=== PATIENT | male | born 1965 | race Caucasian/White ===

== ENCOUNTER 2023-06-03 17:06 | Emergency (ER) | payer MEDICARE, BC, SELFPAY ==
[2023-06-03 17:07] VITALS: BP 183/111
[2023-06-03 17:31] LABS: % Basophils 0.5 % (0-2); % Eosinophils 2.8 % (0-6); % Immature Granulocytes 0.2 % (0-0.5); % Lymphocytes 24.8 % (20.5-51.1); % Monocytes 7.3 % (1.7-9.3); % Neutrophils 64.4 % (42.2-75.2); Absolute Eosinophils 0.1 10^3/uL (0-0.7); Absolute Lymphocytes 1.1 10^3/uL (1.2-3.4); Absolute Monocytes 0.3 10^3/uL (0.1-0.6); Absolute Neutrophils 2.8 10^3/uL (1.4-6.5); Hematocrit 38.1 % (39.0-52.0); Hemoglobin 14.1 g/dL (13.0-18.0); Mean Corpuscular Hgb 31.4 pg (27.0-31.0); Mean Corpuscular Volume 84.9 fL (80.0-94.0); Mean Platelet Volume 9.2 fL (7.4-10.4); Nucleated Red Blood Cells % 0 % (-); Platelet Count 89 10^3/uL (130-400); Red Blood Cell Count 4.49 10^6/uL (4.70-6.10); Red Cell Dist. Width 12.8 % (11.5-14.5); White Blood Cell Count 4.4 10^3/uL (4.8-10.8)
[2023-06-03 17:40] LABS: ALT (SGPT) 38 U/L (0-50); AST (SGOT) 36 U/L (17-59); Albumin 3.6 g/dl (3.5-5.0); Alkaline Phosphatase 97 U/L (38-126); Blood Urea Nitrogen 24 mg/dl (9-20); Calcium 10.9 mg/dl (8.4-10.2); Carbon Dioxide 24 mmol/L (22-30); Chloride 104 mmol/L (98-107); Glucose 194 mg/dl (70-99); Potassium 4.5 mmol/L (3.5-5.1); Sodium 136 mmol/L (135-145); Total Bilirubin 0.7 mg/dl (0.2-1.3); Total Protein 6.1 g/dl (6.3-8.2); eGFR > 60.00
[2023-06-03 17:51] LABS: Troponin I 0.021 ng/ml
[2023-06-03 18:00] VITALS: BP 191/101
[2023-06-03 19:05] VITALS: BP 174/85
[2023-06-03 19:05] LABS: COVID-19 Antigen Negative (Negative)
--- NOTE | 2023-06-03 19:11 | ED.GENMED ---
History of Present Illness
General
Chief Complaint: Blood Pressure Problem
Time Seen by Provider: 06/03/23 18:19
Travel History
Have you had any contact with someone who has COVID-19?: No
Do you have any symptoms of coronavirus? Fever > 100 degrees, chills, cough, shortness of breath, sore throat, loss of taste or smell, muscle aches, or headache?: No
History of Present Illness
History of Present Illness:
57-year-old male with history of polycystic kidney disease status post renal transplant performed in 2020 at [facility], hypertension, coronary artery disease status post CABG, and hyperparathyroidism presents to the emergency department for evaluation of
left-sided headache as well as diffuse body tingling and a 'warmth' sensation to the right upper and lower extremities. Symptoms began approxi-1 hour ago and have waxed and waned since onset. He states the symptoms are fairly common for him
whenever his blood pressure increases. He notes that since his transplant he has had labile hypertension has been quite difficult to control. He has been on numerous antihypertensives without adequate control of his blood pressures. Denies chest
pain or shortness of breath
Past History
Past History
ED Past Medical History: CAD, HTN, Renal failure and Other (Hypertension, polycystic kidney disease, peritoneal dialysis)
ED Past Surgical History: Cardiac (CABG) and Other (manohar kidney removal w/ cadaver kidney transplant October in [facility], Peritoneal dialysis port)
Social History
Tobacco: Non-smoker
Alcohol: Occasional
Drug: Marijuana (Occasional)
Personal:
Living: with family
Employment: Employed
Family History
Family History: Other (His father had coronary disease in his 40s and polycystic kidneys)
Review of Systems
Review of Systems
Allergies reviewed?: Yes
All Other Systems: ROS reviewed and negative except as documented in HPI and ROS
Phy Exam
Physical Exam
Physical Exam:
GEN: Well appearing, NAD, WDWN
HEENT: Oral mucosa moist, no scleral icterus, no nasal congestion
Cardiac: Regular rate and rhythm, no murmurs
Lung: No respiratory distress, no tachypnea, lungs clear to auscultation bilaterally
MSK: No gross deformity or injuries
Skin: Good color, no pallor or jaundice, no rashes
Neuro: AO x3; CN II-XII grossly intact. BUE strength 5/5 in all hall, sensation intact and symmetric. BLE strength 5/5 in all hall, sensation intact and symmetric
Psych: Calm, cooperative
Course
Orders/Labs/Results
Orders:
Orders
06/03/23 17:12
Electrocardiogram (*1) Urgent
Reason for Study: Hypertension, Benign
06/03/23 17:13
EKG- Treatment ONCE
06/03/23 17:21
CMP [Comprehensive Metabolic Panel] Urgent
Complete Blood Count/With Diff Urgent
Troponin I Urgent
06/03/23 18:43
COVID-19 Antigen Urgent
Source: Nasal Swab
Abnormal Lab Results
06/03/23
17:21
WBC 4.4 L 10^3/uL
(4.8-10.8)
RBC 4.49 L 10^6/uL
(4.70-6.10)
Hct 38.1 L %
(39.0-52.0)
MCH 31.4 H pg
(27.0-31.0)
Plt Count 89 L 10^3/uL
(130-400)
Absolute Lymphs (auto) 1.1 L 10^3/uL
(1.2-3.4)
BUN 24 H mg/dl
(9-20)
Glucose 194 H mg/dl
(70-99)
Calcium 10.9 H mg/dl
(8.4-10.2)
Total Protein 6.1 L g/dl
(6.3-8.2)
06/03/23 17:21
06/03/23 17:21
Vital Signs
Initial and Last Documented VS:
Initial Vital Signs
Temp Pulse Resp BP Pulse Ox
97.7 F 68 18 183/111 99
06/03/23 17:07 06/03/23 17:07 06/03/23 17:07 06/03/23 17:07 06/03/23 17:07
Last Documented Vital Signs
Temp Pulse Resp BP Pulse Ox
97.7 F 64 13 174/85 98
06/03/23 17:07 06/03/23 19:15 06/03/23 19:15 06/03/23 19:05 06/03/23 19:06
MDM/Problems Addressed
MDM/Problems Addressed:
Patient's blood pressures are significantly elevated however did downtrend slightly without medication in the emergency department. I discussed blood pressure numbers with his nephrology team on-call who recommended we initiate clonidine however
the patient says that this medication was essentially useless when used previously. Blood work is overall unremarkable, neurologic exam is benign and I have no concern for aneurysmal rupture in the brain particularly given that his headache is
since resolved. Advise close outpatient nephrology follow-up
Comment
Comment:
Initial EKG independently interpreted by me shows a sinus bradycardia rate of [address] changes concerning for ischemia, QTc of 367
*Critical Care Note
Total Time (30-74mins, 75-104mins- exclusive of procedures): Not Applicable
ED Attending Note
-
Portions of this chart may have been created with voice recognition software.� Occasional wrong word or��sound alike� substitutions may have occurred due to the inherent limitations of voice recognition software.
Discharge Plan
Departure
Patient Disposition: Home (Routine Discharge)
Date of Disposition: 06/03/23
Time of Disposition: 19:11
Patient with high blood pressure during this ER visit?: No
Discharge Problem:
Hypertension, uncontrolled
Instructions: High Blood Pressure (DC)
Prescriptions:
No Action
metoprolol succinate 50 MG tablet extended release 24 hr
50 mg PO DAILY
prednisone 10 MG tablet
5 mg PO DAILY
ergocalciferol (vitamin D2) 50,000 UNITS capsule
50,000 units PO TU
rosuvastatin 10 MG tablet
10 mg PO HS
multivitamin with folic acid [Tab-A-Viviana] 1 TABLET tablet
1 tab PO DAILY
potassium chloride [K-Tab] 20 MEQ tablet extended release
20 meq PO DAILY
magnesium oxide 400 MG tablet
400 mg PO DAILY
B-Qlhl-Qppvfke 250 MG tablet
250 mg PO DAILY
mycophenolate sodium 180 MG tablet,delayed release (DR/EC)
360 mg PO DAILY
Rx Instructions:
180 mg po hs
fluticasone furoate-vilanterol [Breo Ellipta] 1 EACH blister with device
1 ea IH R DAILY PRN (Reason: sob)
aspirin 81 mg Tablet,Delayed Release (Dr/Ec)
81 mg PO DAILY
terazosin 2 mg capsule
2 mg PO BID
furosemide 20 mg tablet
20 mg PO DAILY PRN (Reason: swelling)
Envarsus XR 1 mg tablet extended release 24 hr
1 mg PO DAILY
Envarsus XR 4 mg tablet extended release 24 hr
4 mg PO DAILY
clopidogrel 75 mg Tablet
75 mg PO DAILY Qty: 21 0RF
losartan 25 mg Tablet
25 mg PO DAILY
mycophenolate sodium 180 mg Tablet,Delayed Release (Dr/Ec)
180 mg PO HS
cinacalcet [Sensipar] 30 mg Tablet
30 mg PO DAILY
Referrals:
Skinny Moreau MD [Family Provider] -
Sarah Mcmahan MD [Active] - Call in 1-3 days for appt
Interventions
Interventions:
*Risk Screen - Suicide Last Done: 06/03/23 19:29
*General Assessment Last Done: 06/03/23 18:00
*Neglect/Abuse Screening Last Done: 06/03/23 18:00
ED- Fall Risk Assessment Last Done: 06/03/23 19:29
*ED COVID-19 Vaccine History Last Done: 06/03/23 17:59
*Nursing Disposition Last Done: 06/03/23 19:30
ED- Cardiac Assessment Last Done: 06/03/23 18:01
ED- Neurological Assessment Last Done: 06/03/23 18:47
ED- Pulmonary Assessment Last Done: 06/03/23 18:01
Discharge Date and Time
Discharge Date/Time: 06/03/23 19:31
== END 2023-06-03 19:31 | disposition home or self-care (01) ==
LOC: EMR 17:06
PROVIDERS: Physician Assistant; EMERGENCY PHYSICIAN Emergency Medicine; FAMILY PHYSICIAN Family Medicine
DX: I10 Essential (primary) hypertension (principal); I25.10 Atherosclerotic heart disease of native coronary artery without angina pectoris
CPT/HCPCS: 99284; 80053; 84484; 85025; 87811; 93005

== ENCOUNTER 2023-06-09 08:36 | Inpatient (IN) | payer MEDICARE, BC, SELFPAY ==
[2023-06-07] VITALS (14 sets, daily range): BP systolic 132–208; BP diastolic 68–119; BMI 29.8; BMI 28.0
[2023-06-07 10:46] LABS: Glucose - Point of Care 144 mg/dl (70-99)
[2023-06-07] MEDS: BENADRYL 25 MG IV (11:17)
[2023-06-07] MEDS: REGLAN 10 MG IV (11:17)
[2023-06-07] MEDS: LOPRESSOR 5 MG IV (11:24)
--- NOTE | 2023-06-07 11:29 | CON.NEURO4 ---
Consultation - Neurology 4
-
CONSULTING PHYSICIAN: Srinath
REFERRING PHYSICIAN: Omid
DICTATED BY: Srinath
DATE/TIME OF REQUEST: 06/07/23 1035
DATE/TIME OF CONSULTATION: 06/07/23 1040
Reason for Consultation: stroke alert
History of Present Illness:
58 year-old with a complex PMH of polycystic kidney dz s/p renal transplant in 2020, R BRAO, CAD s/p CABG, htn, and hyperparathyroidism with recent admission to on 06/04/23 with uncontrolled htn, SMITH, diffuse body tingling, a feeling of his 'right
side being hot,' dysphagia and slight left sided weakness as well as generalized ataxia. He was seen by Dr. Blood from our service on 06/04. MRI brain at that time was negative for stroke. VSE completed during that admission as well as echo.
Symptoms were attributed to uncontrolled hypertension. PT/OT cleared him for return home and he was discharged 06/05.
Today he returns as a stroke alert for LLE weakness. He states that his sensation of warmth on his R side has not subsided at all since his last admission, so this is not new. (Subjective left sided weakness was also noted on last admission.) He
has a headache and experienced n/v while in CT. He is also complains of abnormal eye movements c/w oscillopsia. Given Benadryl, Reglan and Lopressor in the ED.
He has seen JAYLYN Alford in our office; this information was taken from her previous outpatient note:
06/18/22:
'Presents for evaluation for headaches. He was recently seen at [facility] in December 2021 with a right-sided branch retinal artery occlusion. He had some work-up done and then left AGAINST MEDICAL ADVICE. He is currently taking dual
antiplatelet therapy as well as Crestor. He has some residual right sided right upper and left upper quadrant clouding of his vision. His main concern today is ongoing headaches. Regarding his previous work-up he had an MRI of the brain done without
contrast on December 10, 2021 which showed a slight increase in prominence of a Bianca cisterna magna and mild to moderate diffuse volume loss but no evidence of any stroke. MRA of the picayune of Segal without contrast showed a short segment of mild to
moderate stenosis in the distal left vertebral artery. Otherwise there was no evidence of any high-grade stenosis or occlusion. He does have a family history of cerebral aneurysm and his brother of an intracranial hemorrhage from ruptured
aneurysm. He states that he has been extensively screened for aneurysms in the past. He also had a carotid ultrasound while admitted. This showed less than 50% stenosis bilaterally. His LDL at that time was 87.�������He says that prior to his
retinal artery occlusion and coinciding with going off of gabapentin which she was taking for chronic pain that resulted with taking medication for his kidney transplant he developed headaches have been persistent. He denies any correlation of new
medication with the start of his headaches. They at times are behind his left eye and are associated with jaw pain and neck pain. They seem to occur the most in the middle of the night. This prompted him to start checking his blood pressure at night
and at times it was as high as 210/120. They are worse when he lays down flat and better when he sits up. He denies any associated photophobia, phonophobia, nausea or vomiting. He has no visual aura with that he has these headaches almost on a daily
basis. He was recently put on Klonopin by the transplant team/nephrology at the [facility] to try to help his blood pressure. With improvement in his blood pressure his headaches have improved significantly. He notices now so more that neck
pain seems to trigger his remaining headaches and he has some lower facial pain with them. He denies any snoring and feels that he sleeps well. He has been offered a sleep study in the past and did not want to have this done. He will also be seeing
a dentist soon for evaluation for TMJ.�������
06/18/2022:������Patient feeling much better since his last visit. He reports his blood pressure has been better controlled and therefore headaches have resolved. He has not needed to take any medication for headaches. He denies any symptoms of
stroke. He continues on aspirin and Crestor. He has no complaints today.'
From recent admission:
'Past Medical History: � CAD status post CABG, Renal failure s/p transplant, polycystic kidney disease, hyperparathyroidism, right BRAO, bianca cisterna magna anatomic variant, BPH
Surgical History:� Bilateral kidney removal with cadaveric kidney transplant October 2020, peritoneal dialysis port, three-vessel CABG approximately 2018
Family History:� Father had polycystic kidney disease and and CAD occurred in 40's, 5 siblings with PKD, brother- from cerebral aneurysm rupture
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
use with an edible'
Allergies:� No known allergies.
Allergies
No Known Allergies Allergy (Verified 06/04/23 03:43)
Home Medications
Medication Instructions Recorded
ergocalciferol (vitamin D2) 1,250 50,000 units PO MONTHLY 04/09/21
mcg (50,000 unit) capsule
multivitamin with folic acid 400 1 tab PO DAILY 04/09/21
mcg tablet (Tab-A-Viviana)
potassium chloride 20 mEq 20 meq PO DAILY 08/05/21
tablet,extended release (K-Tab)
mycophenolate sodium 180 mg 360 mg PO BID 08/07/21
tablet,delayed release
aspirin 81 mg tablet,delayed 81 mg PO DAILY 12/10/21
release
tacrolimus 1 mg tablet,extended 3 mg PO DAILY 12/10/21
release 24 hr (Envarsus XR)
terazosin 2 mg capsule 2 mg PO BID 12/10/21
cinacalcet 60 mg tablet 90 mg PO QPM 06/04/23
magnesium oxide 400 mg (241.3 mg 400 mg PO BID 06/04/23
magnesium) tablet
metoprolol tartrate 50 mg tablet 50 mg PO DAILY 06/04/23
metoprolol tartrate 50 mg tablet 75 mg PO DAILY@199906/04/23
(Lopressor)
prednisone 5 mg tablet 5 mg PO Q48H@0800 06/04/23
sodium di- and 1 tab PO DAILY 06/04/23
monophosphate-potassium phos
monobasic 250 mg tablet (Phospha
Neutral)
spironolactone 25 mg tablet 25 mg PO DAILY@199906/04/23
Review of Symptoms:
Patient denies any fever, headache, chest pain, shortness of breath, symptoms. He complains of vertigo and nausea and then vomited in CT.
�Per the HPI.�All systems are reviewed negative except above.
Vital Signs
Temp Pulse Resp BP Pulse Ox
97.6 F 68 12 194/114 99
06/07/23 11:10 06/07/23 11:10 06/07/23 11:10 06/07/23 11:10 06/07/23 11:10
Physical Exam:
The patient is afebrile, heart sounds S1 and S2 are regular, and chest is clear to auscultation bilaterally.
NIH Stroke Scale:
I performed the NIH stroke scale on the patient on 06/07/23 at 1040. The patient scored 0 points on the NIH stroke scale assessment.
Neurologic Examination:
The patient is awake, alert and oriented x 3. He is able to follow commands and answer questions appropriately. There is no aphasia or dysarthria. On cranial nerve assessment, pupils are 3 mm bilateral, round and reactive to light and
accommodation. Visual hall are full. Extraocular movements are intact. +bilateral nystagmus gaze evoked to L. Facial sensations are intact and bilaterally symmetrical, there is no facial asymmetry. Hearing is intact bilaterally to normal
conversation volume. Tongue palate and uvula are midline. Sternocleidomastoid strengths are full bilaterally. Motor strengths are 5/5 bilateral upper and lower extremities on medical research Native scale. There is no drift or involuntary movement
noted. Deep tendon reflexes are 2+ bilateral upper and lower extremities and Babinski is absent bilaterally. Sensations of touch, temperature are intact and bilaterally symmetrical. There was no extinction noted on double simultaneous stimulation.
Coordination is intact by finger to nose bilaterally.
Neuro Imaging:
HCT done today during stroke alert:
'No acute intracranial abnormality noted and no significant change. Specifically, no acute intracranial hemorrhage or evidence to suggest acute large vascular territory transcortical infarct at this time.
Stable prominent retrocerebellar and right lateral cerebellar CSF space, with possible considerations including arachnoid cyst and/or bianca cisterna magna, normal developmental variant.
Aspects score: 10.'
MRI brain 06/04/23:
'Mild diffuse parenchymal atrophy, stable from prior. No abnormal parenchymal signal intensity. No mass effect, midline shift, or extra axial collection. No abnormal signal intensity on diffusion-weighted images. Stable prominent retrocerebellar and
right lateral cerebellar CSF spaces, arachnoid cysts and/or bianca cisterna magna anatomic variant.
The vascular flow voids at the skull base are unremarkable, as far as visualized.
Large mucous retention cysts in the bilateral maxillary sinuses. The mastoid air cells are clear.
IMPRESSION:
No acute intracranial abnormality.'
Impression:
HALLEY WOOD is a 58 year old M who has presented to the hospital with LLE weakness (not present on exam), n/v, oscillopsia and headache.
Differentials for the patient's presentation include:
1. BPPV
2. complicated headache with hypertensive urgency
3. stroke seems less likely given recent admission with MRI brain without stroke, similar symptoms with that admission
Patient has the following risk factors for their symptoms: uncontrolled htn, CAD, renal transplant, right BRAO
IV Tenecteplase/IAT candidacy: not a candidate given NIHSS of 0
Recommendations:
-reviewed today's HCT, recent MRI brain--no further imaging needed at this time.
-Valium for severe vertigo if it persists with n/v. Tylenol for abortive therapy for headache. Has already had Benadryl and Reglan.
-BP control--needs gradual reduction in BP with hypertensive urgency. Given Lopressor in ED. May need to see nephrology or cardiology for better control.
-continue ASA 81mg daily, home rosuvastatin
-outpatient sleep study recommended on last admission to r/o PAOLA contributing to nocturnal htn
-PT/OT evaluations
Discussed patient care with: patient, Dr. Anne
Critical care time 80 mins
--- NOTE | 2023-06-07 12:01 | ED.GENMED ---
History of Present Illness
General
Chief Complaint: Weakness
Source: patient and ambulance crew
Exam Limitations: none
Time Seen by Provider: 06/07/23 10:50
Nursing documentation reviewed up to this point in time: agreed with
Travel History
Have you had any contact with someone who has COVID-19?: No
Do you have any symptoms of coronavirus? Fever > 100 degrees, chills, cough, shortness of breath, sore throat, loss of taste or smell, muscle aches, or headache?: No
History of Present Illness
History of Present Illness:
Patient is a 58-year-old man with a past medical history of renal transplant who was recently admitted to the hospital for a stroke workup, who was called as a possible 'pre-hospital stroke alert' after he experienced reportedly weakness in his left
leg, as reported by paramedics. They report his symptoms started at around 9:30 AM today. However, upon arrival, patient gives a different history. He reports severe dizziness and vomiting. He reports a left-sided headache and feels pressure in
his left nasal sinus area. Patient reports he has never had this before. He is actively vomiting. He reports the symptoms started fairly suddenly this morning and have been constant. He reports he is having difficulty seeing because his eyes
keep moving. Due to prehospital stroke alert, Dr. Yo at the bedside doing a neurological evaluation. Patient denies specific weakness. He reports that he feels a different temperature sensation on the left side of his body versus the right
side of his body.
Past History
Past History
ED Past Medical History: CAD, HTN, Renal failure and Other (Hypertension, polycystic kidney disease, peritoneal dialysis)
ED Past Surgical History: Cardiac (CABG) and Other (manohar kidney removal w/ cadaver kidney transplant October in [facility], Peritoneal dialysis port)
Social History
Tobacco: Non-smoker
Alcohol: Occasional
Drug: Marijuana (Occasional)
Personal:
Living: with family
Employment: Employed
Family History
Family History: Other (His father had coronary disease in his 40s and polycystic kidneys)
Review of Systems
Review of Systems
Allergies reviewed?: Yes
All Other Systems: ROS reviewed and negative except as documented in HPI and ROS
Constitutional: Reports no symptoms
EENT: Reports no symptoms
Respiratory: Reports no symptoms
Cardiac: Reports no symptoms
ABD/GI: Reports nausea and vomiting
: Reports no symptoms
Musculoskeletal: Reports no symptoms
Skin: Reports no symptoms
Neurological: Reports dizzy
Endocrine: Reports no symptoms
Hematologic/Lymphatic: Reports no symptoms
Psychiatric: Reports no symptoms
Phy Exam
Physical Exam
Physical Exam:
Physical Exam
General: Patient is actively vomiting. Appears uncomfortable
Neck: supple. no meningeal signs. normal psoterior pharynx
Heart: s1/s2 regular rate and rhythm, no murmur. equal radial pulses.
Lungs: no acute respiratory distress. clear bilaterally
Abdomen: normal bowel sounds. not tender. no CVAT
Neuro: alert and oriented. no focal neurological deficits. 5 out of 5 strength in all extremities. No drift. Horizontal nystagmus
Skin: no rash
Psychiatric: well kept. interactive and cooperative
Extremities: no edema. no calf tenderness. negative homans. good distal pulses
Course
Orders/Labs/Results
Orders:
Orders
06/07/23 10:47
CT Head W/o Iv Contrast Stat
Comment:
Reason For Exam: stroke alert
06/07/23 11:13
Diphenhydramine [Benadryl] 25 mg IV NOW STA
Metoclopramide [Reglan] 10 mg IV NOW STA
06/07/23 11:21
Metoprolol [Lopressor] 5 mg IV NOW STA
06/07/23 12:11
Electrocardiogram (*1) Urgent
Reason for Study: Vertigo / Dizzy
EKG- Treatment ONCE
06/07/23 12:24
Complete Blood Count/With Diff Urgent
Comprehensive Metabolic Panel Urgent
06/07/23 12:43
HYDROmorphone [Dilaudid] 0.5 mg IV NOW STA
Labetalol HCl [Trandate] 20 mg IV NOW STA
06/07/23 13:59
Admit/Transfer Patient As Directed
Co-Sign Provider:
Level of Care: Observation services
Assign to:: Telemetry
Physician / Group: Seven
Diagnosis: Hypertensive emergency
Reason for Telemetry: Other
Other Reason for Telemetry: Hypertensive emergency
Date to Stop Telemetry: 06/09/23
Time to Stop Telemetry: 11:00
Reason for Hospitalization: Hypertensive emergency
Expected length of stay greater than two midnights?: Yes
ELOS- Estimated Length of Stay in days: 3
I certify the patient meets the requirements for IP care: Yes
Abnormal Lab Results
06/07/23 06/07/23
10:44 12:24
Plt Count 71 L D 10^3/uL
(130-400)
Lymphocytes % 18.5 L %
(20.5-51.1)
BUN 27 H mg/dl
(9-20)
Glucose 158 H mg/dl
(70-99)
Calcium 10.9 H mg/dl
(8.4-10.2)
POC Glucose 144 H mg/dl
(70-99)
06/07/23 12:24
06/07/23 12:24
Vital Signs
Initial and Last Documented VS:
Initial Vital Signs
Temp Pulse Resp BP Pulse Ox
97.6 F 68 12 194/114 99
06/07/23 11:10 06/07/23 11:10 06/07/23 11:10 06/07/23 11:10 06/07/23 11:10
Last Documented Vital Signs
Temp Pulse Resp BP Pulse Ox
97.6 F 80 19 182/105 96
06/07/23 11:10 06/07/23 14:15 06/07/23 14:15 06/07/23 14:00 06/07/23 12:31
MDM/Problems Addressed
Differential Diagnosis Includes:
Vertigo, CVA, intracranial bleed
MDM/Problems Addressed:
Patient presents with acute dizziness, nausea and vomiting
Chronic conditions affecting care: HTN
Acute Exacerbation and/or Progression of Chronic Illness:
Patient is acutely hypertensive, which may be contributing to his symptoms
Acute Exacerbation and/or Progression of Chronic Illness: HTN
*Radiology
Radiology exam reviewed: radiology read reviewed
*Pulse Oximetry
Patient hypoxic: no
*EKG
Interpreted by ED Provider?: Yes
Interpretation: abnormal
Comparison EKG: no changes
Rate: normal
Rhythm: sinus
[place]: normal axis
Interval: normal interval
QRS Pattern: normal QRS
Ischemia: non-specific ST changes
*Emergency Room Orderly Interpretation
Rate: normal
Interpretation: normal
Rhythm: sinus
*Critical Care Note
Total Time (30-74mins, 75-104mins- exclusive of procedures): 35 minutes
comment:
35 minutes of critical care given to patient including frequent reassessments of his blood pressure both before and after being given IV Lopressor and labetalol, as well as reassessing his headache, neurological exam, speaking to neurology and the
hospitalist
Data Reviewed
Review of Other/Old Records Reveals: Discharge Summary (Discharge summary reviewed from hospitalist from 06/05/23 when patient was admitted for 'right body warmth' and hypertension)
Source: patient and previous hospital records
Patient Management
Discussion with other providers: Hospitalist
Escalation/DeEscalation of care consider admission/obs:
Given patient's [id number] blood pressure and ongoing vertigo and severe headache, decision made to admit the patient for blood pressure management.
Update Note
Update Note:
12:30 PM patient given IV Lopressor with very transient improvement of blood pressure but now blood pressure still elevated in the 220s systolic. I am concerned about hypertensive emergency given his severe headache, dizziness and [id number]
blood pressure. I feel it is safe for the patient to be admitted for blood pressure management.
ED Attending Note
-
Portions of this chart may have been created with voice recognition software.� Occasional wrong word or��sound alike� substitutions may have occurred due to the inherent limitations of voice recognition software.
Discharge Plan
Departure
Patient Disposition: Admit
Date of Disposition: 06/07/23
Time of Disposition: 12:42
Admit to: Telemetry
Presentation/result/management discussed w/ accepting MD/DO: Hospitalist
Patient with high blood pressure during this ER visit?: Yes
Condition: Fair
Covid-19: Not Applicable
Discharge Problem:
Hypertensive emergency
Interventions
Interventions:
*Risk Screen - Suicide Last Done: 06/07/23 11:12
*General Assessment Last Done: 06/07/23 11:12
*Neglect/Abuse Screening Last Done: 06/07/23 11:12
ED- Fall Risk Assessment Last Done: 06/07/23 12:34
*ED COVID-19 Vaccine History Last Done: 06/07/23 11:12
ED- Cardiac Assessment Last Done: 06/07/23 12:49
ED- Neurological Assessment Last Done: 06/07/23 12:34
ED- Pulmonary Assessment Last Done: 06/07/23 12:34
[2023-06-07 12:42] LABS: % Basophils 0.6 % (0-2); % Eosinophils 1.5 % (0-6); % Immature Granulocytes 0.3 % (0-0.5); % Lymphocytes 18.5 % (20.5-51.1); % Monocytes 7.7 % (1.7-9.3); % Neutrophils 71.4 % (42.2-75.2); Absolute Eosinophils 0.1 10^3/uL (0-0.7); Absolute Lymphocytes 1.2 10^3/uL (1.2-3.4); Absolute Monocytes 0.5 10^3/uL (0.1-0.6); Absolute Neutrophils 4.7 10^3/uL (1.4-6.5); Hematocrit 40.7 % (39.0-52.0); Hemoglobin 14.6 g/dL (13.0-18.0); Mean Corp Hgb Conc. 35.9 g/dL (33.0-37.0); Mean Corpuscular Hgb 30.6 pg (27.0-31.0); Mean Corpuscular Volume 85.3 fL (80.0-94.0); Mean Platelet Volume 9.5 fL (7.4-10.4); Nucleated Red Blood Cells % 0 % (-); Platelet Count 71 10^3/uL (130-400); Red Blood Cell Count 4.77 10^6/uL (4.70-6.10); Red Cell Dist. Width 12.6 % (11.5-14.5); White Blood Cell Count 6.6 10^3/uL (4.8-10.8)
[2023-06-07] MEDS: DILAUDID 0.5 MG IV (12:50)
[2023-06-07] MEDS: TRANDATE 20 MG IV (12:50)
[2023-06-07 12:51] LABS: ALT (SGPT) 37 U/L (0-50); AST (SGOT) 32 U/L (17-59); Albumin 4.3 g/dl (3.5-5.0); Alkaline Phosphatase 98 U/L (38-126); Blood Urea Nitrogen 27 mg/dl (9-20); Calcium 10.9 mg/dl (8.4-10.2); Carbon Dioxide 28 mmol/L (22-30); Chloride 105 mmol/L (98-107); Estimated Creatinine Clearance 73 ml/min; Glucose 158 mg/dl (70-99); Sodium 135 mmol/L (135-145); Total Bilirubin 0.8 mg/dl (0.2-1.3); Total Protein 6.9 g/dl (6.3-8.2); eGFR > 60.00
[2023-06-07 13:23] LABS: Potassium 4.6 mmol/L (3.5-5.1)
--- NOTE | 2023-06-07 14:02 | HPS.HSE ---
Family Physician
-
Family Physician: INTERVIEWE UNKNOWN - PT NOT
Medical History
Allergies / Home Medications
Allergies reflects when Allergies were last updated in [facility].
Home Medications with original date entered in [facility]
Physical Exam
Vital Signs
Vital Signs
Temp Pulse Resp BP Pulse Ox
97.6 F 72 10 188/101 96
06/07/23 11:10 06/07/23 13:45 06/07/23 13:45 06/07/23 13:30 06/07/23 12:31
Laboratory Results
-
06/07/23 12:24
06/07/23 12:24
Laboratory Results
Total Bilirubin 0.8 mg/dl (0.2-1.3) 06/07/23 12:24
AST 32 U/L (17-59) 06/07/23 12:24
ALT 37 U/L (0-50) 06/07/23 12:24
Alkaline Phosphatase 98 U/L (38-126) 06/07/23 12:24
CT brain:
No acute intracranial abnormality noted and no significant change. Specifically, no acute intracranial hemorrhage or evidence to suggest acute large vascular territory transcortical infarct at this time.
Impression/Plan
-
IMPRESSION:
PLAN:
--- NOTE | 2023-06-07 14:49 | HPS.HSE ---
Addendum entered and electronically signed by Gerald Amezcua MD 06/07/23 18:45:
Patient been having some numbness of the right side with some clumsiness as he described it, does not feel weak, even her CT LE was negative seen by neurology and an MRI brain on Thursday, June 05, 2023 was negative therefore ordered an MRI to see
if there is any new event. This is very likely secondary to the hypertension while other causes may need to be considered. No neck pain, if the MRI of head is negative then MRI of cervical spine may need to be considered.
Original Note:
Family Physician
-
Family Physician: INTERVIEWE UNKNOWN - PT NOT
Chief Complaint
-
Headache, nausea and dizziness and elevated blood pressure
History of Present Illness
58-year-old male with known history of polycystic renal disease and status post renal transplant, poorly controlled hypertension mostly in the evening hours, and he was discharged from the hospital on Thursday for the same issue who made him come back
today. He woke up this morning feeling dizzy, lightheaded with generalized body ache and malaise and fatigue with nausea but no vomiting.
Checked his blood pressure was extremely elevated therefore decided to come back to the hospital. Denies any weakness or numbness in extremities admit left-sided facial pain and pressure thinking he may have sinusitis.
No urinary or GI symptom,
Workup in the ER showed blood pressure extremely elevated received a dose of IV labetalol blood pressure improved right now is 180s from 220s, close his headaches better and still little dizzy but much better than before, stroke alert was called as
initial report from the EMS was he has weakness in the right side but patient denies any weakness or numbness, seen by neurology I think this is mostly vertigo likely blood pressure related.
Had an MRI of brain on Thursday basically was negative.
He is awake, alert and oriented x 3 hold appropriate conversations.
Medical History
Past Medical History
Past Medical History: Reports Other
Additional Past Medical History:
Past medical history Reviewed:
History of persistent renal disease) end-stage renal disease on dialysis but now status post renal transplant
Coronary artery disease status post CABG and stents
Deviated septum
Dyslipidemia
Poorly controlled hypertension
History of shingle
History of otitis C
Vitamin D deficiency
GERD
Albuminuria
Erosive gastropathy without bleeding
History of colitis
Syncope
Abdominal cellulitis
Posttransplant CMV infection
Posttransplant BK viremia
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
Right third metatarsal fracture
Surgical history:
Cardiac cath and stenting and CABG
[place] tooth extraction
Deviated septum repair
Arthroscopic peritoneal dialysis catheter placement and removal
Left upper extremity AV fistula creation
Bilateral nephrectomy
Colonic polypectomy
Colonoscopy
Hernia repair
Social history: Lives independently with the family no smoking alcohol or drug use.
Family history: Positive for polycystic renal disease, hypertension stroke and coronary artery disease
Past Surgical History: Reports Other
Social History
Tobacco: Other
Family History
Family History: Other
Allergies / Home Medications
Allergies reflects when Allergies were last updated in [facility].
Home Medications with original date entered in [facility]
Allergy/Medication List:
Allergies
Allergy/AdvReac Type Severity Reaction Status Date / Time
No Known Allergies Allergy Verified 06/04/23 03:43
Home Medications
ergocalciferol (vitamin D2) 1,250 mcg (50,000 unit) capsule 50,000 units PO MONTHLY 04/09/21
multivitamin with folic acid 400 mcg tablet (Tab-A-Viviana) 1 tab PO DAILY 04/09/21
potassium chloride 20 mEq tablet,extended release (K-Tab) 20 meq PO DAILY 08/05/21
mycophenolate sodium 180 mg tablet,delayed release 360 mg PO BID 08/07/21
aspirin 81 mg tablet,delayed release 81 mg PO DAILY 12/10/21
tacrolimus 1 mg tablet,extended release 24 hr (Envarsus XR) 3 mg PO DAILY 12/10/21
terazosin 2 mg capsule 2 mg PO BID 12/10/21
cinacalcet 60 mg tablet 90 mg PO QPM 06/04/23
magnesium oxide 400 mg (241.3 mg magnesium) tablet 400 mg PO BID 06/04/23
metoprolol tartrate 50 mg tablet 50 mg PO DAILY 06/04/23
metoprolol tartrate 50 mg tablet (Lopressor) 75 mg PO HS 06/04/23
prednisone 5 mg tablet 5 mg PO Q48H@0800 06/04/23
sodium di- and monophosphate-potassium phos monobasic 250 mg tablet (Phospha Neutral) 1 tab PO DAILY 06/04/23
spironolactone 25 mg tablet 25 mg PO DAILY@199906/04/23
Review of Systems
-
A 12 point ROS was completed and negative except as noted: Yes
Physical Exam
Vital Signs
Vital Signs
Temp Pulse Resp BP Pulse Ox
97.6 F 80 19 182/105 96
06/07/23 11:10 06/07/23 14:15 06/07/23 14:15 06/07/23 14:00 06/07/23 12:31
Physical Exam
Respiratory: Other
Laboratory Results
-
06/07/23 12:24
06/07/23 12:24
Laboratory Results
Total Bilirubin 0.8 mg/dl (0.2-1.3) 06/07/23 12:24
AST 32 U/L (17-59) 06/07/23 12:24
ALT 37 U/L (0-50) 06/07/23 12:24
Alkaline Phosphatase 98 U/L (38-126) 06/07/23 12:24
CT brain:
No acute intracranial abnormality noted and no significant change. Specifically, no acute intracranial hemorrhage or evidence to suggest acute large vascular territory transcortical infarct at this time.
EKG showed sinus bradycardia rate around 38, PA 132, QTc 371, otherwise nonspecific T wave abnormalities.
Data Reviewed
-
CT Scan: Image Personally Visualized and interpreted and Discussed with Patient
Lab Data: Labs Reviewed by me and Discussed with Patient
Old Records: Reviewed
Impression/Plan
-
IMPRESSION:
58-year-old male with history of renal transplant secondary to polycystic renal disease and poorly controlled blood pressure, was discharged from the hospital on Monday, June 05, 2023 while he was here for the same issue which is a headache and
elevated blood pressure.
No medication adjustment made then. Presented again with the same episode with dizziness, doubt a stroke.
Hypertensive emergency, improving
Labile hypertension
Headache
Dizziness, likely secondary to hypertensive emergency
Nausea
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
Coronary artery disease status post stenting and CABG
Dyslipidemia
Chronic immunosuppressed
PLAN:
Pressures 180s/100 now which is acceptable reduction gradually from his initial presentation was around 220/120s.
Headache and dizziness resolved
Monitor vital sign
Continue Lopressor 50 in the morning and 70 5 in the evening as he admitted his blood pressure usually elevated in the night until earlier in the morning and usually well-controlled in the daytime, and taking a long-acting medication his blood
pressure is helen be dropping below the normal making symptomatic therefore not sure he would benefit from long-acting blood pressure medication like Aldactone or any other long-acting medication, Lopressor is acceptable, I will start him on
hydralazine 25, 3 times daily scheduled, take with checking blood pressure before taking the medication, do not administer if systolic blood pressure less than 110 as explained to the patient to avoid further fluctuation or dropping of the blood
pressure.
Continue medication for now
No need for the MRI as he had 1 done in Thursday basically was negative for stroke and this is unlikely stroke
Seen by neurology
Continue aspirin and statin
All discussed with the patient in detail expressed understanding
CODE STATUS full code
DVT prophylaxis Lovenox
[2023-06-07] MEDS: SENSIPAR 90 MG PO (18:16)
[2023-06-07] MEDS: LOVENOX 40 MG SC (18:17)
[2023-06-07] MEDS: APRESOLINE 25 MG PO ×2 (18:17→22:29)
[2023-06-07] MEDS: HYTRIN 2 MG PO (20:04)
[2023-06-07] MEDS: ALDACTONE 25 MG PO (20:04)
[2023-06-07] MEDS: MAGNESIUM OXIDE 500 MG PO (20:04)
[2023-06-07] MEDS: MYFORTIC DELAYED REL. 360 MG PO (20:05)
[2023-06-07] MEDS: ZOFRAN 4 MG IV (20:36)
[2023-06-07] MEDS: LOPRESSOR 75 MG PO (22:29)
[2023-06-08] VITALS (7 sets, daily range): BP systolic 108–147; BP diastolic 72–92; PULSE 77; BMI 27.2
--- NOTE | 2023-06-08 00:23 | PTCARENOTE ---
At approx 2030, pt stood at bedside with nursing assistance to void in urinal and c/o dizziness and nausea. Pt sat on side of bed and vomited. Refer to MAR for Zofran administration. Zofran was effective, pt offers no complaints of nausea at this
time
[2023-06-08 06:24] LABS: Blood Urea Nitrogen 29 mg/dl (9-20); Calcium 10.7 mg/dl (8.4-10.2); Carbon Dioxide 26 mmol/L (22-30); Chloride 102 mmol/L (98-107); Estimated Creatinine Clearance 68 ml/min; Glucose 129 mg/dl (70-99); Magnesium 1.7 mg/dl (1.6-2.3); Potassium 4.1 mmol/L (3.5-5.1); Sodium 138 mmol/L (135-145); eGFR > 60.00
[2023-06-08] MEDS: TYLENOL 650 MG PO (06:37)
[2023-06-08 07:14] LABS: Vitamin B12 334 pg/ml (239-931)
[2023-06-08] MEDS: HYTRIN 2 MG PO ×2 (07:34→20:33)
[2023-06-08] MEDS: MYFORTIC DELAYED REL. 360 MG PO ×2 (07:34→20:33)
[2023-06-08] MEDS: ENVARSUS XR 3 MG PO (07:34)
[2023-06-08] MEDS: NEUTRA-PHOS POWDER PACKET 250 MG PO (07:34)
[2023-06-08] MEDS: MAGNESIUM OXIDE 500 MG PO ×2 (07:34→20:32)
[2023-06-08] MEDS: DELTASONE 5 MG PO (07:34)
[2023-06-08] MEDS: ASPIR LOW (ENTERIC COATED) 81 MG PO (07:34)
[2023-06-08] MEDS: KCL 20 MEQ PO (07:34)
[2023-06-08] MEDS: APRESOLINE 25 MG PO ×2 (07:35→17:11)
[2023-06-08] MEDS: LOPRESSOR 50 MG PO (07:35)
--- NOTE | 2023-06-08 08:16 | W.PN.HOSP.TC ---
Today's Communication/Plan
-
Repeat MRI of the brain. Aspirin, considering statins. PT OT and rehab eval.
Assessment / Plan
Assessment / Plan
Physical exam:
General: Well Developed, Well Nourished and No Apparent Distress
HEENT: Normocephalic, Atraumatic and Moist Mucous Membranes
Respiratory: Clear to Auscultation; Negative Wheezes, Rales or Rhonchi
Cardiac: Regular Rhythm and S1/S2
GI: Soft, Nontender and Nondistended
Musculoskeletal: No Clubbing, No Cyanosis and No Edema
Neuro: Awake, Alert and Oriented, left face and left side body decree sensation, left eye ptosis, left nystagmus, left aidfci-jr-gdda dysmetria, left upper extremity and bilateral lower extremity ataxia, strength 4 out of 5 all 4 extremities.
Psych: Calm
MRI of the brain:
1. � 8.9 mm ACUTE ISCHEMIC INFARCT in the LEFT POSTEROLATERAL MEDULLA containing cytotoxic edema.
2. � Moderate to severe diffuse cerebellar volume loss.
3. � Moderate diffuse cerebral volume loss.
4. � Mild paranasal sinus mucosal disease.
A/P:
IMPRESSION:
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
Hypertensive urgency--> this is not the cause of his symptoms, rather consequence from stroke.
Hyperglycemia
Hypercalcemia
Dyslipidemia
Thrombocytopenia, PLt 71
Conditions prior to presentation:
CAD status post CABG in the past
Polycystic kidney disease s/p renal transplant in 2020
History of R BRAO
Hypertension
Hyperparathyroidism
Plan:
Reviewed repeat MRI of the brain today on 06/08
Aspirin 81 mg daily
Neurology would like to hold off on dual antiplatelet therapy given baseline thrombocytopenia.
Patient had TTE recently.
Check lipid profile and likely to start statins
Plan for MRI of the head and neck
NIH stroke eval
PT OT eval
Vitamin B12 334, TSH 3.75, folate 8.4
Update hemoglobin A1c
Continue metoprolol tartrate 50 mg in the morning 75 mg in the evening, hydralazine 25 mg 3 times daily, spironolactone 25 mg p.o. daily--> allow permissive hypertension.
Discussed with neurology and reconsulted neurology today on 06/08.
Nephrology consult
Tailor Apprentice/rehab consult
On mycophenolate and tacrolimus, and prednisone.
On terazosin
On Sensipar
Potassium magnesium supplements.
DVT prophylaxis-->Lovenox 40 mg subcutaneous daily
CODE STATUS--> full code
Total time spent on today's encounter was 52 minutes which included time spent in counseling the patient/family regarding diagnosis and treatment plan as listed above, goals of care, and symptom management. Case was discussed with nursing staff,
specialists, and care coordinators/case management. All labs and imaging personally reviewed by me. Remainder the time spent in detailed review of previous records, lab data, imaging, and other medical provider documentation.
Anticipated Discharge: 24 - 48 hours
Subjective/Interval History
-
Date of Service: June 08, 2023
Patient still very unsteady on his gait, complains of paresthesias left side, denies chest pain or shortness of breath. Denies aphasia or vision abnormalities.
Objective Data
-
Labs:
Laboratory Results
06/08/23
05:22
Sodium 138
Potassium 4.1
Chloride 102
Carbon Dioxide 26
BUN 29 H
Creatinine 1.3
Glucose 129 H
Calcium 10.7 H
Vital Signs:
Vital Signs
Temp Pulse Resp BP Pulse Ox
97.9 F 74 16 141/86 98
06/08/23 03:23 06/08/23 07:35 06/08/23 07:32 06/08/23 07:35 06/08/23 07:32
I&O
06/07/23 06/08/23 06/09/23
06:59 06:59 06:59
Intake Total 480 / 480
Output Total 2740 / 2740
Balance -0 / -2259
Review of Systems
-
All other systems: Reviewed and negative
--- NOTE | 2023-06-08 10:45 | W.PN.NEURO.1 ---
Today's Communication / Plan
-
-Continue on aspirin would avoid DAPT therapy given baseline thrombocytopenia, after discussion with patient he is most comfortable with remaining on aspirin which I feel is reasonable
-Will check lipid panel if LDL greater than 70 would start atorvastatin 20 mg
-Goal normotension normoglycemia
-Check MRA of the head and neck both without contrast given renal impairment
-Monitor on cardiac telemetry patient already had TTE
-Speech physical and Occupational Therapy
-Anticipate will need acute rehabilitation given significant gait ataxia and gait impairment
-Neurologic checks NIH stroke scales
Will follow
Neuro Assessment/Plan
Assessment
58-year-old male with past med history of renal transplant, coronary disease status post CABG, retinal artery occlusion presented to hospital with left hemibody sensory change with numbness in right hemibody temperature change with loss of hot
temperature, has had some new gait ataxia as well along with vision changes.
Repeated brain MRI demonstrates an acute infarct in the left medulla, this was not seen on the previous brain MRI on 06/04.
Posterior fossa and brainstem strokes are more likely to have negative brain MRIs but his initial presentation was definitely due to this stroke and not a hypertensive neurologic issue, hypertension was much more likely an effect from the ischemic
stroke.
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
Etiology of the stroke is most likely atheroembolic versus small vessel disease low suspicion for cardioembolic etiology.
Subjective/Objective
Subjective Data
Date of Service: June 08, 2023
Discussed the MRI finding of stroke, medications, rehab, MRA studies, denies headache or dysphagia, gait is very affected
Objective Data
Vital Signs
Temp Pulse Resp BP Pulse Ox
97.9 F 74 16 141/86 98
06/08/23 03:23 06/08/23 07:35 06/08/23 07:32 06/08/23 07:35 06/08/23 07:32
Lab Results
06/07/23 12:24
06/08/23 05:22
Sodium 138 mmol/L (135-145) 06/08/23 05:22
Potassium 4.1 mmol/L (3.5-5.1) 06/08/23 05:22
BUN 29 mg/dl (9-20) H 06/08/23 05:22
Glucose 129 mg/dl (70-99) H 06/08/23 05:22
Calcium 10.7 mg/dl (8.4-10.2) H 06/08/23 05:22
Vitamin B12 334 pg/ml (239-931) 06/08/23 05:22
Patient Allergies
No Known Allergies Allergy (Verified 06/04/23 03:43)
Review of Systems
-
History Source: Patient
All other systems: Reviewed and negative
Constitutional: No Symptoms
EENT: No Symptoms Reported
Respiratory: No Symptoms
Cardiac: No Symptoms
Abdomen/GI: No Symptoms
Genitourinary: No Symptoms
Musculoskeletal: No Symptoms
Skin: No Symptoms
Neuro: Weakness and Ataxia
Endocrine: No Symptoms
Hematologic / Lymphatic: No Symptoms
Allergy / Immunology: No Symptoms
Physical Exam
-
General: Comfortable
Eyes: Other (Left eye ptosis)
HEENT: Normocephalic
Neck: No Bruits Bilaterally
Respiratory: Clear to Auscultation
Cardiac: Regular Rhythm
GI: Normal Bowel Sounds
Skin: Unremarkable
Extremities: No Clubbing
Psych: Unremarkable
Extended Neurological Exam
Mood & Affect: Mood Unremarkable and Affect Unremarkable
Attention Span & Concentration: Awake, Alert and Interactive
Memory: Unremarkable
Tremor: Hand Tremor Absent
Involuntary Movement: None
Speech: Quality Unremarkable and Quantity Unremarkable; Negative Expressive Aphasia, Receptive Aphasia or Dysarthric
Cranial Nerve II: Left Eye: Pupillary Reactivity Unremarkable, Pupillary Size Unremarkable and Other (Left eye ptosis without miosis)
Cranial Nerve II: Right Eye: Pupillary Reactivity Unremarkable and Pupillary Size Unremarkable
Cranial Nerves III, IV, : Extraocular Movement: Extraocular Movement Full in all Directions and Other (Nystagmus left gaze torsional)
Cranial Nerve V: Facial Sensation: Other (Right face reduced to cold, left face reduced light touch)
Cranial Nerve VII: Facial Symmetry: Normal Facial Symmetry
Muscle Bulk & Tone: Bulk Unremarkable
Pronator Drift: No Drift in Upper Extremities
Deep Tendon Reflexes: Trace Throughout
Coordination: Other (Left arm ataxia)
Babinski Sign: Absent Bilaterally
Gait & Station: Other (Wide based ataxic requires assistance)
Modified Bates Score (MRS)
-
MRS Score:
Data Reviewed
-
CT Head: Report Reviewed and Image Reviewed
MRI Head: Report Reviewed and Image Reviewed
MRA Head: Ordered and Pending
MRA Neck: Ordered and Pending
Echocardiogram: Report Reviewed
Labs: Report Reviewed
--- NOTE | 2023-06-08 12:57 | CM ---
CM met with pt bedside
Pt resides with his spouse in a 2SH with 2 MARIANELA
Full flight to second floor- 1st floor sleeping capability if needed
Pt is independent with his ADLs
Denies use of DMEs and hx with VN/SNF
PCP- Skinny Alex
Rx- [facility] [address] [place]
Pt is OBS- [facility] verbally reviewed
Copy provided
Pt and neuro notes anticipate need for acute rehab on dc
Pt requesting [facility]
CM requested PT/OT orders
PMR already placed and pending
[facility] referral sent via [facility]
Discharge Disposition- anticipate [facility]
--- NOTE | 2023-06-08 14:58 | CON.MD ---
Consultation - Medical
-
Assessment
-acute left posterolateral medulla CVA
-ADPKD/bilateral NX
-DDRTx 10/2020 RLQ
-hx CMV/BKV/acute rejection
-HTN
-CAD
-chronic thrombocytopenia
-HL
-3HPT/hypercalcemia
Plan
-continue envarsus/myfortic/pred as is, will check recent transplant labs (no changes were made to envarsus then)
-follow BMP
-Anticoagulation per neurology
-rehab evaluation
-[id number]
--- NOTE | 2023-06-08 15:58 | CON.MR ---
Consultation
Consultation Request
Date/Time Consultation Performed: 06/08/23 1545
Performing Provider: Dr. Brady
Reason for Consultation: CVA
Medical History
-
Chief Complaint: Dizziness, vision complaints
History of Present Illness:
I had the opportunity to see Austin Hill in rehabilitation consultation. This is a 58 year-old male with a complex PMH of polycystic kidney dz s/p renal transplant in 2020, R BRAO, CAD s/p CABG, HTN, and hyperparathyroidism who did have a
recent admission to on 06/04/23 with uncontrolled HTN, SMITH, diffuse body tingling, a feeling of his 'right side feeling warm when holding a cold glass of icewater', and dysphagia and slight left sided weakness as well as generalized ataxia. MRI
brain at that time was negative for stroke. VSE completed during that admission as well as echo. Symptoms were attributed to uncontrolled hypertension. Patient was discharged 06/05.
Returned as a stroke alert for LLE weakness, persistent sensation of warmth on his R side and had a headache and experienced n/v while in CT.� He was also describing abnormal eye movements, difficulty focusing, his eyes would shake and blurry
vision. Does have left facial numbness feeling. Repeated brain MRI demonstrates an acute infarct in the left medulla, this was not seen on the previous brain MRI on 06/04. Seen by neurology and felt that patient has a partial Wallenberg syndrome on
examination with left eye ptosis, left arm dysmetria, right hemibody and loss of hot temperature in left hemibody numbness as well as wide-based and ataxic gait.
Patient seen at bedside today. No complaints of pain or headache. Some dizziness still at times, no nausea. Still some blurring of vision. No other pain complaints. Still numbness in the left side of face.
Patient lives with in 2 story home, but sounds like does have a 1st floor setup available. Previously all independent with mobility and ADLs without any cane or assistive device prior.
Social History
Functional Level Premorbidity:
Independent for all activities.
Current Funct Level: Ambulation, Transfer, UE/LE Dressing:
Min A transfers, Ambulation with Mod A x 2
Personal:
Living: With Spouse
Potential First Floor Set Up: Yes
Driving: Yes
Employment: Employed
Allergies / Home Medications
Allergy/AdvReac Type Severity Reaction Status Date / Time
No Known Allergies Allergy Verified 06/04/23 03:43
Medication Instructions Recorded Confirmed Last Taken Type
ergocalciferol (vitamin D2) 1,250 50,000 units PO MONTHLY Supplement 04/09/21 06/07/23 4 Days Ago History
mcg (50,000 unit) capsule ~05/31/23
multivitamin with folic acid 400 1 tab PO DAILY Supplement 04/09/21 06/07/23 06/06/23 History
mcg tablet (Tab-A-Viviana)
potassium chloride 20 mEq 20 meq PO DAILY Electrolyte 08/05/21 06/07/23 06/06/23 History
tablet,extended release (K-Tab) Repletion
mycophenolate sodium 180 mg 360 mg PO BID Transplant 08/07/21 06/07/23 06/06/23 History
tablet,delayed release
aspirin 81 mg tablet,delayed 81 mg PO DAILY Blood Clot 12/10/21 06/07/23 06/06/23 History
release Prevention/Tx
tacrolimus 1 mg tablet,extended 3 mg PO DAILY Transplant 12/10/21 06/07/23 06/06/23 History
release 24 hr (Envarsus XR)
terazosin 2 mg capsule 2 mg PO BID Blood Pressure 12/10/21 06/07/23 06/06/23 History
cinacalcet 60 mg tablet 90 mg PO QPM Kidney Disease 06/04/23 06/07/23 06/06/23 History
magnesium oxide 400 mg (241.3 mg 400 mg PO BID Electrolyte Repletion 06/04/23 06/07/23 06/06/23 History
magnesium) tablet
metoprolol tartrate 50 mg tablet 50 mg PO DAILY Blood Pressure 06/04/23 06/07/23 06/06/23 History
metoprolol tartrate 50 mg tablet 75 mg PO HS Blood Pressure 06/04/23 06/07/23 06/06/23 History
(Lopressor)
prednisone 5 mg tablet 5 mg PO Q48H@0800 Transplant 06/04/23 06/07/23 06/03/23 History
sodium di- and 1 tab PO DAILY Electrolyte 06/04/23 06/07/23 06/06/23 History
monophosphate-potassium phos Repletion
monobasic 250 mg tablet (Phospha
Neutral)
spironolactone 25 mg tablet 25 mg PO DAILY@2000 Fluid 06/04/23 06/07/23 06/06/23 History
Retention/Swelling
Review Of Systems
-
History Source: Patient
All other systems: Negative unless noted
Constitutional: Reports No Symptoms
Eye: Reports Blurry Vision
EENT: Reports Other (dry mouth)
Respiratory: Reports No Symptoms
Cardiac: Reports No Symptoms
Abdomen/GI: Reports No Symptoms
: Reports No Symptoms
Musculoskeletal: Reports No Symptoms
Integumentary: Reports No Symptoms
Neurological: Reports Dizzy, Weakness and Numbness
Psych: Reports No Symptoms
Endocrine: Reports No Symptoms
Hematologic/Lymphatic: Reports No Symptoms
Immunology: Reports No Symptoms
Physical Exam
Active Medications
Generic Name Dose Route Start Last Admin
Trade Name Freq PRN Reason Stop Dose Admin
Acetaminophen 650 mg 06/07/23 17:21 06/08/23 06:37
Acetaminophen 325 Mg Tablet PO 07/05/23 17:20 650 mg
Q4HPRN PRN Administration
mild pain/SMITH/temp> 100.4F
Aspirin 81 mg 06/08/23 08:00 06/08/23 07:34
Aspirin 81 Mg (Enteric Coated) Tablet PO 07/06/23 07:59 81 mg
DAILY FRANCIS Administration
Cinacalcet 90 mg 06/07/23 18:00 06/07/23 18:16
Cinacalcet 30 Mg Tablet PO 07/05/23 17:59 90 mg
QPM FRANCIS Administration
Enoxaparin Sodium 40 mg 06/07/23 18:00 06/07/23 18:17
Enoxaparin Sodium 40 Mg/0.4 Ml Syringe SC 07/05/23 17:59 40 mg
QPM FRANCIS Administration
Hydralazine HCl 25 mg 06/07/23 17:30 06/08/23 07:35
Hydralazine 25 Mg Tablet PO 07/05/23 17:29 25 mg
TID FRANCIS Administration
Hydralazine HCl 10 mg 06/07/23 17:21
Hydralazine 20 Mg/Ml Vial IV 07/05/23 17:20
Q6HPRN PRN
PRN SBP>170 And/Or DBP >110
Magnesium Oxide 500 mg 06/07/23 20:00 06/08/23 07:34
Magnesium Oxide 500 Mg Tablet PO 07/05/23 19:59 500 mg
BID FRANCIS Administration
Metoprolol Tartrate 50 mg 06/08/23 08:00 06/08/23 07:35
Metoprolol 50 Mg Regular Release Tablet PO 07/06/23 07:59 50 mg
DAILY FRANCIS Administration
Metoprolol Tartrate 75 mg 06/07/23 22:00 06/07/23 22:29
Metoprolol 50 Mg Regular Release Tablet PO 07/05/23 21:59 75 mg
HS FRANCIS Administration
Mycophenolate Sodium 360 mg 06/07/23 20:00 06/08/23 07:34
Mycophenolic Acid [address] Tablet (Non Form) PO 360 mg
BID FRANCIS Administration
Ondansetron HCl 4 mg 06/07/23 17:21 06/07/23 20:36
Ondansetron 4 Mg/2 Ml Vial IV 07/05/23 17:20 4 mg
Q6HPRN PRN Administration
nausea and vomiting
Oxycodone HCl 5 mg 06/07/23 17:21
Oxycodone 5 Mg Regular Release Tablet PO 06/21/23 17:20
Q4HPRN PRN
moderate pain
Potassium Chloride 20 meq 06/08/23 08:00 06/08/23 07:34
Potassium Chloride 20 Meq Extended Release Tablet PO 07/06/23 07:59 20 meq
DAILY FRANCIS Administration
Potassium Phosphate 250 mg 06/08/23 08:00 06/08/23 07:34
Neutra-Phos Powder Concentrate (250 Mg) Packet PO 07/06/23 07:59 250 mg
DAILY FRANCIS Administration
Prednisone 5 mg 06/08/23 08:00 06/08/23 07:34
Prednisone 5 Mg Tablet PO 07/06/23 07:59 5 mg
Q48H FRANCIS Administration
Sodium Chloride 0 flush 06/07/23 18:00
Sodium Chloride 0.9% (Flush) Syringe IV 07/05/23 17:59
PER PROTOCOL FRANCIS
Spironolactone 25 mg 06/07/23 20:00 06/07/23 20:04
Spironolactone 25 Mg Tablet PO 07/05/23 19:59 25 mg
DAILY@2000 FRANCIS Administration
Tacrolimus 3 mg 06/08/23 08:00 06/08/23 07:34
Tacrolimus 1 Mg Extended Release Tablet PO 07/06/23 07:59 3 mg
DAILY FRANCIS Administration
Terazosin HCl 2 mg 06/07/23 20:00 06/08/23 07:34
Terazosin 1 Mg Capsule PO 07/05/23 19:59 2 mg
BID FRANCIS Administration
Vital Signs
Temp Pulse Resp BP Pulse Ox
97.8 F 77 18 130/83 97
06/08/23 15:00 06/08/23 15:00 06/08/23 15:00 06/08/23 15:00 06/08/23 15:00
Height 5 ft 11 in
Actual Weight 88.564 kg
Body Mass Index (BMI) 27.2
Physical Exam
Physical Exam:
General Appearance/Observation: Well-developed, well-nourished individual in no apparent distress.
Pain/Comfort Assessment: Denies
Mood/Affect: Appropriate
Eyes: Conjunctiva/Lids: normal Pupils: pupils equal round and reactive to light and Accommodation
Some nystagmus with left gaze. but full EOM movements
Ears/Nose/Throat: oral mucosa moist, throat clear. Lips/Teeth/Gums: normal
Neck: No muscle spasm or tenderness
Cardiovascular: Heart: regular, no murmur
Pulses: dorsalis pedis 2+ bilaterally
Respiratory: Respiratory Effort/Chest Expansion: normal Auscultation: Clear to auscultation bilaterally
Gastrointestinal: abdomen not tender, no distension, normal abdominal bowel sounds
Genitourinary: No Luu
Rectal Exam: Deferred
Extremities: Edema: None Cyanosis: None Trophic changes: None
Neurology Exam:
Orientation: Alert, Oriented to self, Time, Place
Memory: Intact
Higher cortical function
Speech: Intact
Repetition: Intact
Comprehension: Intact
Two step command: Intact
Naming: Intact
Cranial Nerves: - intact and symmetric. No facial droop, weakness or asymmetry
Sensory:
Light touch: Intact in bilateral upper and lower extremities
Reflexes:
Biceps: 2+ bilaterally
Patellar: 2+ bilaterally
Babinski: Downgoing bilaterally
Clonus: None
Renetta: Negative bilaterally
Cerebellar: Dysmetria/Ataxia: Does have some mild left dysmetria with FNF testing. Negative drift. Some difficulty with coordinated hand movements on the left. But 5/5 strength.
Musculoskeletal:
Motor: (Manual muscle scale 0-5)
Muscle SA EF WE EE FF FA HF KE DF EHL PF
Right 5 5 5 5 5 5 5 5 5 5 5
Left 5 5 5 5 5 5 5 5 5 5 5
Tone: Normal in all extremities
Range of Motion: Passively within normal limits in all extremities
Lab Results
06/07/23 12:24
06/08/23 05:22
WBC 6.6 10^3/uL (4.8-10.8) 06/07/23 12:24
Hgb 14.6 g/dL (13.0-18.0) 06/07/23 12:24
Hct 40.7 % (39.0-52.0) 06/07/23 12:24
MCV 85.3 fL (80.0-94.0) 06/07/23 12:24
Plt Count 71 10^3/uL (130-400) L D 06/07/23 12:24
Sodium 138 mmol/L (135-145) 06/08/23 05:22
Potassium 4.1 mmol/L (3.5-5.1) 06/08/23 05:22
Chloride 102 mmol/L (98-107) 06/08/23 05:22
Carbon Dioxide 26 mmol/L (22-30) 06/08/23 05:22
BUN 29 mg/dl (9-20) H 06/08/23 05:22
Creatinine 1.3 mg/dL (0.7-1.3) 06/08/23 05:22
eGFR > 60.00 06/08/23 05:22
Glucose 129 mg/dl (70-99) H 06/08/23 05:22
Calcium 10.7 mg/dl (8.4-10.2) H 06/08/23 05:22
Magnesium 1.7 mg/dl (1.6-2.3) 06/08/23 05:22
Total Bilirubin 0.8 mg/dl (0.2-1.3) 06/07/23 12:24
AST 32 U/L (17-59) 06/07/23 12:24
ALT 37 U/L (0-50) 06/07/23 12:24
Alkaline Phosphatase 98 U/L (38-126) 06/07/23 12:24
Total Protein 6.9 g/dl (6.3-8.2) 06/07/23 12:24
Albumin 4.3 g/dl (3.5-5.0) 06/07/23 12:24
Diagnostic Results
As per HPI.
Comorbidities / Impairment Group
Comorbidities:
heart disease, HTN, renal transplant
Impairment Group:
CVA L weakness and coordination dysfunction
Assessment / Plan
Plan
Assessment:
58 year old male with left sided coordination deficits, weakness, left facial numbness with MRI demonstrating an acute infarct in the left medulla.
PM&R PT/OT to increase independence with ADLs, improve balance, coordination, endurance, strength, mobility, community reintegration, decreased burden of care on others and family education.
CVA: Secondary prophylaxis with DAPT being avoided per neurology due to thrombocytopenia. Continue to monitor neurologic status. 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
dysmetria, right hemibody and loss of hot temperature in left hemibody numbness as well as wide-based and ataxic gait.
Left hemiparesis: High risk for falls and sliding out of chair/bed. Safety reinforced.
- Avoid using affected arm to help lift or pull patient as this will cause trauma to the shoulder.
HTN: continue medications with metoprolol, hydralizine, monitor closely
Renal transplant - Nephrology following, on anti-rejection meds.
Thrombocytopenia: Status post renal transplant. Continue to monitor. Avoiding DAPT currently per neurology.
Skin: monitor for pressure sores/rashes/lesions.
Pain: acetaminophen or oxycodone as needed.
DVT Prophylaxis: Mechanicals
Pulmonary: Incentive spirometry
Safety: Continue to reinforce assistance with all transfers.
Code Status: Full code
Dispo (date/plan/equipment needs): Acute rehab when more medically stable and BP's stable
Functional and Medical Goals: Modified Independent with ADL�s, ambulation, transfers
Summary
-
Things that must be addressed in Hospital prior to discharge:
1. Please continue bedside PT/OT.
2. Please consult speech.
3. Blood pressure must be less than 180 systolic and 100 diastolic for 24 hours before being stable for transfer to SNF/acute rehab.
4. Please give blood pressure parameters.
5. Please comment on dvt chemoprophylaxis restrictions.
Discharge Destination: Acute rehab
Summary of recommendations:
- Discharge Destination: Acute rehab when medically stable and BP stable on medications
Thank you for allowing me to care for your patient. Please contact me with any questions or concerns.
Data Reviewed
-
Radiology: Report Reviewed by me
Labs: Labs Reviewed by me
Comments
-
This note was dictated using a voice recognition system. Please excuse any typographical errors from chemistry specialist. If you believe there are any discrepancies, please notify our office.
--- NOTE | 2023-06-08 16:24 | PTOTSP ---
Dysphagia evaluation orders appreciated. Patient known to department from a video swallow study 06/04/2023 during an ER visit with concern for stroke like symptoms including dysphagia 06/04/2023. Video swallow study revealed functional oral and mild
pharyngeal stages of swallowing (see patient care note for details). A Regular, thin liquid diet was recommended with strategies to alternate solids and liquids, use double swallows, and reflux precautions.
Patient returned to hospital 06/07/2023. MRI of Brain 06/08/2023 revealed 'ACUTE ISCHEMIC INFARCT in the LEFT POSTEROLATERAL MEDULLA containing cytotoxic edema'. Patient's initial presentation (06/04/2023) was due to this same stroke per neurology.
As swallowing was assessed via video swallow study (06/04/2023) and patient is denying any current difficulty swallowing, will hold evaluation. If patient with any c/o worsened dysphagia, please reconsult as appropriate.
[2023-06-08] MEDS: SENSIPAR 90 MG PO (17:11)
[2023-06-08] MEDS: LOVENOX 40 MG SC (17:11)
[2023-06-08] MEDS: VITAMIN B-12 1000 MCG PO (17:11)
[2023-06-08] MEDS: LIPITOR 40 MG PO (17:11)
[2023-06-08] MEDS: ALDACTONE 25 MG PO (20:32)
[2023-06-08] MEDS: APRESOLINE PO (22:54)
[2023-06-08] MEDS: LOPRESSOR 75 MG PO (22:54)
[2023-06-09 03:07] VITALS: BP 120/63
--- NOTE | 2023-06-09 03:23 | PTCARENOTE ---
Pt stating frustration with recent stroke diagnosis and his performance with physical therapy. Pt tearful, provided emotional support and encouragement. Pt expresses his appreciation. NIH still scoring 1 for limb ataxia in the 2199 Hydralazine
not administered per parameters (BP 108/72). Call galvez within reach.
[2023-06-09 05:50] LABS: Hematocrit 42.4 % (39.0-52.0); Hemoglobin 15.1 g/dL (13.0-18.0); Mean Corp Hgb Conc. 35.6 g/dL (33.0-37.0); Mean Corpuscular Hgb 30.8 pg (27.0-31.0); Mean Corpuscular Volume 86.5 fL (80.0-94.0); Mean Platelet Volume 9.3 fL (7.4-10.4); Platelet Count 96 10^3/uL (130-400); Red Cell Dist. Width 12.9 % (11.5-14.5); White Blood Cell Count 6.8 10^3/uL (4.8-10.8)
[2023-06-09 06:00] VITALS: BMI 27.2
[2023-06-09 06:18] LABS: Blood Urea Nitrogen 32 mg/dl (9-20); Calcium 10.5 mg/dl (8.4-10.2); Carbon Dioxide 26 mmol/L (22-30); Chloride 101 mmol/L (98-107); Estimated Creatinine Clearance 63 ml/min; Glucose 170 mg/dl (70-99); HDL Cholesterol 29 mg/dl; LDL Cholesterol, Calculated 130 mg/dl; Potassium 4.1 mmol/L (3.5-5.1); Sodium 135 mmol/L (135-145); Total Cholesterol 228 mg/dl (50-199); Triglyceride 345 mg/dl (10-149); Very Low Density Lipoprotein 69 mg/dl (0-30); eGFR 58.99
[2023-06-09 07:52] VITALS: BP 137/81
--- NOTE | 2023-06-09 08:38 | W.PN.HOSP.TC ---
Today's Communication/Plan
-
Discharge planning to rehab
Assessment / Plan
Assessment / Plan
Physical exam:
General: Well Developed, Well Nourished and No Apparent Distress
HEENT: Normocephalic, Atraumatic and Moist Mucous Membranes
Respiratory: Clear to Auscultation; Negative Wheezes, Rales or Rhonchi
Cardiac: Regular Rhythm and S1/S2
GI: Soft, Nontender and Nondistended
Musculoskeletal: No Clubbing, No Cyanosis and No Edema
Neuro: Awake, Alert and Oriented, left face and left side body decree sensation, left eye ptosis, left nystagmus, left [id number] dysmetria, left upper extremity and bilateral lower extremity ataxia, strength 4 out of 5 all 4 extremities.
Psych: Calm
MRI of the brain:
1. � 8.9 mm ACUTE ISCHEMIC INFARCT in the LEFT POSTEROLATERAL MEDULLA containing cytotoxic edema.
2. � Moderate to severe diffuse cerebellar volume loss.
3. � Moderate diffuse cerebral volume loss.
4. � Mild paranasal sinus mucosal disease.
A/P:
IMPRESSION:
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
Hypertensive urgency--> this is not the cause of his symptoms, rather consequence from stroke.
Hyperglycemia
Hypercalcemia
Dyslipidemia
Thrombocytopenia, PLt 71
Conditions prior to presentation:
CAD status post CABG in the past
Polycystic kidney disease s/p renal transplant in 2020
History of R BRAO
Hypertension
Hyperparathyroidism
Plan:
Reviewed repeat MRI of the brain on 06/08
Aspirin 81 mg daily
Neurology would like to hold off on dual antiplatelet therapy given baseline thrombocytopenia.
Patient had TTE recently.
Started atorvastatin
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
NIH stroke eval
PT OT eval
Vitamin B12 334, TSH 3.75, folate 8.4
Update hemoglobin A1c
Continue metoprolol tartrate 50 mg in the morning 75 mg in the evening, hydralazine 25 mg 3 times daily, spironolactone 25 mg p.o. daily--> allow permissive hypertension.
Discussed with neurology and reconsulted neurology on 06/08.
Nephrology consult
Cadastral Engineer/rehab consult
On mycophenolate and tacrolimus, and prednisone.
On terazosin
On Sensipar
Potassium magnesium supplements.
DVT prophylaxis-->Lovenox 40 mg subcutaneous daily
CODE STATUS--> full code
Anticipated Discharge: Today
Subjective/Interval History
-
Date of Service: June 09, 2023
Patient still with same neurodeficits but nothing worse. Denies chest pain or shortness of breath
Objective Data
-
Labs:
Laboratory Results
06/09/23
05:15
WBC 6.8
Hgb 15.1
Hct 42.4
Plt Count 96 L D
Sodium 135
Potassium 4.1
Chloride 101
Carbon Dioxide 26
BUN 32 H
Creatinine 1.4 H
Glucose 170 H
Calcium 10.5 H
Vital Signs:
Vital Signs
Temp Pulse Resp BP Pulse Ox
97.9 F 68 18 137/81 95
06/09/23 07:52 06/09/23 07:52 06/09/23 07:52 06/09/23 07:52 06/09/23 07:52
I&O
06/08/23 06/09/23 06/10/23
06:59 06:59 06:59
Intake Total 480 / 480 1560 / 1560
Output Total 2740 / 2740 1775 / 1775
Balance -2260 / -2260 -215 / -215
[2023-06-09] MEDS: VITAMIN B-12 1000 MCG PO (09:16)
[2023-06-09] MEDS: MYFORTIC DELAYED REL. 360 MG PO (09:16)
[2023-06-09] MEDS: ENVARSUS XR 3 MG PO (09:16)
[2023-06-09] MEDS: ASPIR LOW (ENTERIC COATED) 81 MG PO (09:16)
[2023-06-09] MEDS: APRESOLINE 25 MG PO ×2 (09:16→17:11)
[2023-06-09] MEDS: HYTRIN 2 MG PO (09:16)
[2023-06-09] MEDS: NEUTRA-PHOS POWDER PACKET 250 MG PO (09:22)
[2023-06-09] MEDS: MAGNESIUM OXIDE 500 MG PO (09:22)
[2023-06-09] MEDS: KCL 20 MEQ PO (09:23)
[2023-06-09] MEDS: LOPRESSOR 50 MG PO (09:23)
[2023-06-09 10:20] LABS: Glycohemoglobin (HgbA1c) 6.2 % (4.0-5.6)
[2023-06-09 11:00] VITALS: BP 118/74
[2023-06-09 12:16] LABS: Glucose - Point of Care 206 mg/dl (70-99)
--- NOTE | 2023-06-09 12:18 | W.PN.NEPH.PH ---
Today's Communication / Plan
-
follow BMP
Assessment/Plan
-
Assessment
-acute left posterolateral medulla CVA
-ADPKD/bilateral NX
-DDRTx 10/2020 RLQ
-hx CMV/BKV/acute rejection
-HTN
-CAD
-chronic thrombocytopenia
-HL
-3HPT/hypercalcemia
Plan
-continue envarsus/myfortic/pred as is, will check recent transplant labs (no changes were made to envarsus then)
-follow BMP
-Anticoagulation per neurology
-rehab evaluation
-BP excellent
-
-
Date of Service: June 09, 2023
CC / HPI / ROS
-
Chief Complaint:
renal transplant
History of Present Illness:
Cr slightly up at 1.4
BP excellent on meds
on IS regimen for RTx
on ASA after CVA
Review of Systems:
no CP/SOB
Labs
-
Labs:
WBC 6.8 10^3/uL (4.8-10.8) 06/09/23 05:15
RBC 4.90 10^6/uL (4.70-6.10) 06/09/23 05:15
Hgb 15.1 g/dL (13.0-18.0) 06/09/23 05:15
Hct 42.4 % (39.0-52.0) 06/09/23 05:15
Plt Count 96 10^3/uL (130-400) L D 06/09/23 05:15
Sodium 135 mmol/L (135-145) 06/09/23 05:15
Potassium 4.1 mmol/L (3.5-5.1) 06/09/23 05:15
Chloride 101 mmol/L (98-107) 06/09/23 05:15
Carbon Dioxide 26 mmol/L (22-30) 06/09/23 05:15
BUN 32 mg/dl (9-20) H 06/09/23 05:15
Creatinine 1.4 mg/dL (0.7-1.3) H 06/09/23 05:15
eGFR 58.99 06/09/23 05:15
Glucose 170 mg/dl (70-99) H 06/09/23 05:15
Calcium 10.5 mg/dl (8.4-10.2) H 06/09/23 05:15
Albumin 4.3 g/dl (3.5-5.0) 06/07/23 12:24
Physical Exam
-
Vital Signs:
Vital Signs
Temp Pulse Resp BP Pulse Ox
97.8 F 58 17 118/74 95
06/09/23 11:00 06/09/23 11:00 06/09/23 11:00 06/09/23 11:00 06/09/23 11:00
Cardiovascular:: Regular rate and rhythm
Respiratory:: Bilateral: CTA
Lung Excursion:: Normal
Abdomen:: Nontender and Soft
Bowel Sounds:: Normal
Extremity Edema:: None: Bilateral:
[2023-06-09 12:32] VITALS: BP 145/79; PULSE 68; O2SAT 98
[2023-06-09] MEDS: NOVOLOG FLEXPEN-MODERATE RESISTANCE 3 UNITS SC (12:42)
[2023-06-09 13:29] VITALS: BP 145/79; PULSE 68; O2SAT 98
--- NOTE | 2023-06-09 14:24 | W.DCSUMMARY ---
Discharge Summary
Discharge Data
Date of Admission: 06/09/23
Date of Discharge: 06/09/23
-
Pending Results: No
Hospital Course
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
impaired glucose tolerance, anemia, hypercalcemia secondary hyperparathyroidism, left vertebral artery occlusion, right ophthalmic branch artery occlusion, GERD, vitamin D deficiency, shingles, colitis, chronic thrombocytopenia, BPH, hypertension,
hyperlipidemia, presented to the hospital with dizziness headache diffuse body tingling and numbness and feeling his right side being hot along with dysphagia and slight left-sided weakness as well as general ataxia. He was seen by ER, hospitalist,
neurology a few days ago with a negative MRI of the brain and was sent home but patient came back to the hospital and again seen by neurology and ER and hospitalist and initially recommended no further images but given ongoing symptoms a repeat MRI
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 He was started on aspirin and statins. Neurology did not recommend dual antiplatelet due to thrombocytopenia. Patient
also had abnormal MRA but neurology felt no need to change in treatment. He was receptive to acute rehab and he will be discharged to acute rehab for further rehabilitation.
Discharge duration: 38 minutes
Discharge Plan
-
Patient Disposition: Acute Rehab Facility
Discharge Diagnosis/Procedures: Acute medulla Stroke. Hypertension. Hyperlipidemia. History of coronary artery disease. History polycystic kidney disease. History of kidney transplant. History of peripheral vascular disease.
Diet: Low Cholesterol
Activity: As tolerated
Blood Work: Please PCP to order CBC, BMP within 1 week
Referrals:
Primary care, Provider [Other] (see less than 1 week)
Luis Vilchis MD [Active] - in two to four weeks
Harvey Borrego MD [Active] - in four to six weeks
Prescriptions:
New
atorvastatin 40 mg Tablet
40 mg PO QPM Qty: 30 0RF
hydralazine 25 mg Tablet
25 mg PO TID Qty: 90 0RF
cyanocobalamin (vitamin B-12) 1,000 mcg Tablet
1,000 mcg PO DAILY Qty: 30 0RF
Continued
ergocalciferol (vitamin D2) 50,000 UNITS capsule
50,000 units PO MONTHLY
multivitamin with folic acid [Tab-A-Viviana] 1 TABLET tablet
1 tab PO DAILY
potassium chloride [K-Tab] 20 MEQ tablet extended release
20 meq PO DAILY
mycophenolate sodium 180 MG tablet,delayed release (DR/EC)
360 mg PO BID
aspirin 81 mg Tablet,Delayed Release (Dr/Ec)
81 mg PO DAILY
terazosin 2 mg capsule
2 mg PO BID
Envarsus XR 1 mg tablet extended release 24 hr
3 mg PO DAILY
spironolactone 25 mg tablet
25 mg PO DAILY@1999
magnesium oxide 400 mg (241.3 mg magnesium) tablet
400 mg PO BID
metoprolol tartrate 50 mg tablet
50 mg PO DAILY
Phospha 250 Neutral 250 mg tablet
1 tab PO DAILY
cinacalcet 60 mg tablet
90 mg PO QPM
prednisone 5 mg Tablet
5 mg PO Q48H@0800
metoprolol tartrate [Lopressor] 50 mg Tablet
75 mg PO HS
Discharge Orders:
Discharge Patient (As Directed); Ordered 06/09/23
Ordered By: José Miguel Ferguson
Discharge Date and Time
Discharge Date/Time: 06/09/23 18:10
[2023-06-09 15:00] VITALS: BP 131/79
--- NOTE | 2023-06-09 15:17 | CM ---
Pt reviewed with - ready for dc
Pt offered bed at [facility]
Bedside update provided- pt in agreement
Pt now inpatient status- [facility] verbally reviewed
Copy provided
Discharge Disposition- [facility]
[2023-06-09 16:41] LABS: Glucose - Point of Care 142 mg/dl (70-99)
[2023-06-09] MEDS: NOVOLOG FLEXPEN-MODERATE RESISTANCE SC (16:43)
[2023-06-09] MEDS: SENSIPAR 90 MG PO (17:11)
[2023-06-09] MEDS: LOVENOX 40 MG SC (17:11)
[2023-06-09] MEDS: LIPITOR 40 MG PO (17:12)
== END 2023-06-09 18:10 | DRG 65 ==
LOC: 3 WEST ACU 08:36
PROVIDERS: Student in an Organized Health Care Education/Training Program; ADMITTING PHYSICIAN Internal Medicine; ATTENDING PHYSICIAN Hospitalist; CONSULT PHYSICIAN Specialist; EMERGENCY PHYSICIAN Emergency Medicine; OTHER PHYSICIAN Physical Medicine & Rehabilitation; OTHER PHYSICIAN Psychiatry & Neurology Neurology
DX: I63.9 Cerebral infarction, unspecified (principal); D84.821 Immunodeficiency due to drugs; G81.94 Hemiplegia, unspecified affecting left nondominant side; I12.0 Hypertensive chronic kidney disease with stage 5 chronic kidney disease or end stage renal disease; Z94.0 Kidney transplant status; Q61.2 Polycystic kidney, adult type; I16.1 Hypertensive emergency; H34.231 Retinal artery branch occlusion, right eye; D69.6 Thrombocytopenia, unspecified; R13.10 Dysphagia, unspecified; E78.5 Hyperlipidemia, unspecified; E21.2 Other hyperparathyroidism; R26.0 Ataxic gait; I65.02 Occlusion and stenosis of left vertebral artery; I73.9 Peripheral vascular disease, unspecified; I16.0 Hypertensive urgency; R73.9 Hyperglycemia, unspecified; N40.0 Benign prostatic hyperplasia without lower urinary tract symptoms; K21.9 Gastro-esophageal reflux disease without esophagitis; I25.10 Atherosclerotic heart disease of native coronary artery without angina pectoris; Z95.1 Presence of aortocoronary bypass graft; Z82.71 Family history of polycystic kidney; Z82.49 Family history of ischemic heart disease and other diseases of the circulatory system; Z90.5 Acquired absence of kidney; Z79.82 Long term (current) use of aspirin; Z79.60 Long term (current) use of unspecified immunomodulators and immunosuppressants; Z79.52 Long term (current) use of systemic steroids; Z95.5 Presence of coronary angioplasty implant and graft; Z91.81 History of falling
CPT/HCPCS: 70450; 70544; 70547; 70551; 80048; 80053; 80061; 82607; 82962; 83036; 83735; 85025; 85027; 93005; 96374; 96375; 97163; 97167; 97530; 99291

== ENCOUNTER 2023-06-11 03:44 | Observation (INO) | payer MEDICARE, BC, SELFPAY ==
[2023-06-10 23:11] VITALS: BP 96/75
[2023-06-10 23:20] VITALS: BMI 28.3
--- NOTE | 2023-06-10 23:24 | ED.GENMED ---
History of Present Illness
<Harvey Garcia PA-C - Last Filed: 06/11/23 02:58>
General
Chief Complaint: Heart Rate Problem
Time Seen by Provider: 06/10/23 23:16
Travel History
Have you had any contact with someone who has COVID-19?: No
Do you have any symptoms of coronavirus? Fever > 100 degrees, chills, cough, shortness of breath, sore throat, loss of taste or smell, muscle aches, or headache?: No
History of Present Illness
History of Present Illness:
58-year-old male with history of coronary artery disease status post CABG, hypertension, and polycystic kidney disease status post renal transplant presents to the emergency department from [facility] for syncope and strokelike symptoms. Patient
was initially admitted to this hospital 6 days ago with vague neurologic symptoms and underwent head CT and brain MRI that were unrevealing. He was discharged home return to the hospital 3 days ago with acute left-sided subjective weakness and
paresthesias at which time stroke workup revealed an acute infarct in the medulla. Patient had no acute findings on angiography during that hospital stay and was ultimately discharged to [place] [facility]. On rehab today he states he developed left-sided
headache with similar left arm heaviness that was present during his most recent strokelike event, he was then assisted to a standing position by staff at which point he became lightheaded and syncopized. Staff was unable to arouse him and
attempted chest compressions briefly before the patient awoke. On arrival to the emergency department the patient is alert and oriented fully however he is noted to be bradycardic and hypotensive. On my evaluation he is reporting left-sided
headache as well as left-sided arm weakness. NIH exam performed by myself is unremarkable with no acute deficits
Past History
<Harvey Garcia PA-C - Last Filed: 06/11/23 02:58>
Past History
ED Past Medical History: CAD, HTN, Renal failure and Other (Hypertension, polycystic kidney disease, peritoneal dialysis)
ED Past Surgical History: Cardiac (CABG) and Other (manohar kidney removal w/ cadaver kidney transplant October in [facility], Peritoneal dialysis port)
Social History
Tobacco: Non-smoker
Alcohol: Occasional
Drug: Marijuana (Occasional)
Personal:
Living: with family
Employment: Employed
Family History
Family History: Other (His father had coronary disease in his 40s and polycystic kidneys)
Review of Systems
<Harvey Garcia PA-C - Last Filed: 06/11/23 02:58>
Review of Systems
Allergies reviewed?: Yes
All Other Systems: ROS reviewed and negative except as documented in HPI and ROS
Phy Exam
<Harvey Garcia PA-C - Last Filed: 06/11/23 02:58>
Physical Exam
Physical Exam:
GEN: Well appearing, NAD, WDWN
HEENT: Oral mucosa moist, no scleral icterus, no nasal congestion
Cardiac: Regular rate
Lung: No respiratory distress, no tachypnea
MSK: No gross deformity or injuries
Skin: Good color, no pallor or jaundice, no rashes
Neuro: AO x3; CN II-XII grossly intact. BUE strength 5/5 in all hall, sensation intact and symmetric. BLE strength 5/5 in all hall, sensation intact and symmetric
Psych: Calm, cooperative
Course
<Harvey Garcia PA-C - Last Filed: 06/11/23 02:58>
Orders/Labs/Results
Orders:
Orders
06/10/23 23:10
EKG [Electrocardiogram (*1)] Urgent
Reason for Study: Other
Other Reason for Exam: bradycardia
EKG- Treatment ONCE
06/10/23 23:24
CT Head W/o Iv Contrast Urgent
Comment:
Reason For Exam: syncope, stroke symptoms
06/10/23 23:48
Complete Blood Count/With Diff Urgent
Comprehensive Metabolic Panel Urgent
Abnormal Lab Results
06/10/23
23:48
Plt Count 102 L 10^3/uL
(130-400)
Absolute Monos (auto) 0.8 H 10^3/uL
(0.1-0.6)
Monocytes % 10.0 H %
(1.7-9.3)
BUN 45 H mg/dl
(9-20)
Creatinine 1.6 H mg/dL
(0.7-1.3)
Glucose 161 H mg/dl
(70-99)
Calcium 11.0 H mg/dl
(8.4-10.2)
Total Protein 5.8 L g/dl
(6.3-8.2)
06/10/23 23:48
06/10/23 23:48
Vital Signs
Initial and Last Documented VS:
Initial Vital Signs
Temp Pulse Resp BP Pulse Ox
98.1 F 49 10 96/75 96
06/10/23 23:11 06/10/23 23:11 06/10/23 23:11 06/10/23 23:11 06/10/23 23:11
Last Documented Vital Signs
Temp Pulse Resp BP Pulse Ox
98.1 F 59 10 162/97 99
06/10/23 23:11 06/11/23 02:00 06/11/23 02:00 06/11/23 02:00 06/11/23 02:00
<Niharika Luu MD - Last Filed: 06/11/23 02:42>
Orders/Labs/Results
Orders:
Orders
06/10/23 23:10
EKG [Electrocardiogram (*1)] Urgent
Reason for Study: Other
Other Reason for Exam: bradycardia
EKG- Treatment ONCE
06/10/23 23:24
CT Head W/o Iv Contrast Urgent
Comment:
Reason For Exam: syncope, stroke symptoms
06/10/23 23:48
Complete Blood Count/With Diff Urgent
Comprehensive Metabolic Panel Urgent
Abnormal Lab Results
06/10/23
23:48
Plt Count 102 L 10^3/uL
(130-400)
Absolute Monos (auto) 0.8 H 10^3/uL
(0.1-0.6)
Monocytes % 10.0 H %
(1.7-9.3)
BUN 45 H mg/dl
(9-20)
Creatinine 1.6 H mg/dL
(0.7-1.3)
Glucose 161 H mg/dl
(70-99)
Calcium 11.0 H mg/dl
(8.4-10.2)
Total Protein 5.8 L g/dl
(6.3-8.2)
06/10/23 23:48
06/10/23 23:48
Vital Signs
Initial and Last Documented VS:
Initial Vital Signs
Temp Pulse Resp BP Pulse Ox
98.1 F 49 10 96/75 96
06/10/23 23:11 06/10/23 23:11 06/10/23 23:11 06/10/23 23:11 06/10/23 23:11
Last Documented Vital Signs
Temp Pulse Resp BP Pulse Ox
98.1 F 59 10 162/97 99
06/10/23 23:11 06/11/23 02:00 06/11/23 02:00 06/11/23 02:00 06/11/23 02:00
<Harvey Garcia PA-C - Last Filed: 06/11/23 02:58>
Comment
Comment:
Suspect this was stroke recrudescence provoked by syncopal event. Discussed w/ neuro, he is quite a complex case given his thrombocytopenia and vague neuro symptoms, in addition to labile/uncontrolled HTN. Will admit for inpatient neuro consultation
*Critical Care Note
Total Time (30-74mins, 75-104mins- exclusive of procedures): Not Applicable
ED Attending Note
<Harvey Garcia PA-C - Last Filed: 06/11/23 02:58>
-
Portions of this chart may have been created with voice recognition software.� Occasional wrong word or��sound alike� substitutions may have occurred due to the inherent limitations of voice recognition software.
<Niharika Luu MD - Last Filed: 06/11/23 02:42>
ED Attending Note
Patient seen and examined by attending physician: Yes
I performed the substantive portion of visit, reviewed & personally made and approve the management plan that is documented in note by myself or HEENA.: Yes
ED Attending Note:
Pt with hx of recent Wallenberg syndrome, in [place], had a short lived syncopal event while lain' bathroom, assoc with L sided h/a and L arm feeling funny. Pt now awake, alert, in nad. speech clear.
Admit, attention to bp, neuro to see. Not a tpa iat candidate at this time.
Discharge Plan
Departure
Patient Disposition: Admit
Date of Disposition: 06/11/23
Time of Disposition: 01:44
Presentation/result/management discussed w/ accepting MD/DO: Hospitalist
Discharge Problem:
Stroke-like symptoms, Syncope
Prescriptions:
No Action
ergocalciferol (vitamin D2) 50,000 UNITS capsule
50,000 units PO MONTHLY
multivitamin with folic acid [Tab-A-Viviana] 1 TABLET tablet
1 tab PO DAILY
potassium chloride [K-Tab] 20 MEQ tablet extended release
20 meq PO DAILY
mycophenolate sodium 180 MG tablet,delayed release (DR/EC)
360 mg PO BID
aspirin 81 mg Tablet,Delayed Release (Dr/Ec)
81 mg PO DAILY
terazosin 2 mg capsule
2 mg PO BID
Envarsus XR 1 mg tablet extended release 24 hr
3 mg PO DAILY
spironolactone 25 mg tablet
25 mg PO DAILY@1999
magnesium oxide 400 mg (241.3 mg magnesium) tablet
400 mg PO BID
metoprolol tartrate 50 mg tablet
50 mg PO DAILY
Phospha 250 Neutral 250 mg tablet
1 tab PO DAILY
cinacalcet 60 mg tablet
90 mg PO QPM
prednisone 5 mg Tablet
5 mg PO Q48H@0800
metoprolol tartrate [Lopressor] 50 mg Tablet
75 mg PO HS
atorvastatin 40 mg Tablet
40 mg PO QPM Qty: 30 0RF
hydralazine 25 mg Tablet
25 mg PO TID Qty: 90 0RF
cyanocobalamin (vitamin B-12) 1,000 mcg Tablet
1,000 mcg PO DAILY Qty: 30 0RF
Referrals:
Skinny Moreau MD [Family Provider] -
Interventions
Interventions:
*Risk Screen - Suicide Last Done: 06/10/23 23:11
*General Assessment Last Done: 06/10/23 23:11
*Neglect/Abuse Screening Last Done: 06/10/23 23:11
ED- Fall Risk Assessment Last Done: 06/10/23 23:21
*ED COVID-19 Vaccine History Last Done: 06/10/23 23:21
ED- Cardiac Assessment Last Done: 06/10/23 23:21
ED- Pulmonary Assessment Last Done: 06/10/23 23:21
[2023-06-10 23:31] VITALS: BP 133/85
[2023-06-10 23:50] VITALS: BP 158/90
[2023-06-11] VITALS (17 sets, daily range): BP systolic 121–176; BP diastolic 67–105; PULSE 61–76; O2SAT 98; BMI 27.5
[2023-06-11 00:05] LABS: % Basophils 0.4 % (0-2); % Eosinophils 1.1 % (0-6); % Immature Granulocytes 0.2 % (0-0.5); % Lymphocytes 35.7 % (20.5-51.1); % Neutrophils 52.6 % (42.2-75.2); Absolute Eosinophils 0.1 10^3/uL (0-0.7); Absolute Monocytes 0.8 10^3/uL (0.1-0.6); Absolute Neutrophils 4.4 10^3/uL (1.4-6.5); Hematocrit 41.8 % (39.0-52.0); Hemoglobin 15.1 g/dL (13.0-18.0); Mean Corp Hgb Conc. 36.1 g/dL (33.0-37.0); Mean Corpuscular Hgb 30.8 pg (27.0-31.0); Mean Corpuscular Volume 85.3 fL (80.0-94.0); Mean Platelet Volume 9.4 fL (7.4-10.4); Nucleated Red Blood Cells % 0 % (-); Platelet Count 102 10^3/uL (130-400); Red Cell Dist. Width 12.6 % (11.5-14.5); White Blood Cell Count 8.3 10^3/uL (4.8-10.8)
[2023-06-11 00:16] LABS: ALT (SGPT) 27 U/L (0-50); AST (SGOT) 19 U/L (17-59); Albumin 3.5 g/dl (3.5-5.0); Alkaline Phosphatase 82 U/L (38-126); Blood Urea Nitrogen 45 mg/dl (9-20); Carbon Dioxide 26 mmol/L (22-30); Chloride 100 mmol/L (98-107); Estimated Creatinine Clearance 55 ml/min; Glucose 161 mg/dl (70-99); Potassium 4.3 mmol/L (3.5-5.1); Sodium 136 mmol/L (135-145); Total Bilirubin 0.6 mg/dl (0.2-1.3); Total Protein 5.8 g/dl (6.3-8.2); eGFR 50.26
--- NOTE | 2023-06-11 03:18 | HPS.HSE ---
Family Physician
-
Family Physician: Skinny Moreau
Chief Complaint
-
Syncope
History of Present Illness
Patient is a 58y M with complicated PMH significant for renal transplant, hypertension, ASCVD and recent medullary CVA who presents to ED from [facility] for evaluation after syncopal episode. Patient has been at [place] for acute rehab following
his hospitalization here 06/07 - 06/09 for acute L medullary CVA. Patient states that he has been doing fairly well at the rehab until this evening. He notes that he went into the bathroom (he transfers to a chair and is then wheeled to the bathroom
and back). He sat on the toilet and urinated. Upon standing to transfer, he began to feel lightheaded and clammy. He sat in the chair and was being wheeled back to his bed when he lost consciousness. Patient awoke back in his hospital bed with a
room full of staff and a nurse administering chest compressions.
These were discontinued and patient was transported to the ED for evaluation.
Patient states that he was initially flushed / warm feeling, diaphoretic and nauseated upon waking. These symptoms quickly resolved.
On his initial vitals here in the ED, his pulse was in the 40s.
In the ED, patient feels that he has returned to his recent baseline.
He denies any new neurologic deficits / symptoms.
He denies any chest pain, palpitations, nausea, etc.
Medical History
Past Medical History
Past Medical History: Reports Other
Additional Past Medical History:
CKD (previously HD-dependent, now s/p transplant)
Polycystic Kidney Disease
ASCVD (CAD, CVA)
Deviated septum
Dyslipidemia
Multidrug Resistant Hypertension
Supine Hypertension
Hyperparathyroidism
Vitamin D deficiency
GERD
Erosive Gastropathy / GERD
Posttransplant CMV infection
Posttransplant BK viremia
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
Past Surgical History: Reports Other
Additional Past Surgical History:
CABG
PTCA with Stent
Septoplasty
Peritoneal dialysis catheter placement and removal
Left upper extremity AV fistula creation
Bilateral nephrectomy
Renal Transplant
Colonic polypectomy
Hernia repair
Social History
Tobacco: Non-smoker
Alcohol: None
Drug: None
Family History
Family History: Other (ADPKD)
Allergies / Home Medications
Allergies reflects when Allergies were last updated in [employer].
Home Medications with original date entered in [employer]
Allergy/Medication List:
Allergies
Allergy/AdvReac Type Severity Reaction Status Date / Time
No Known Allergies Allergy Verified 06/04/23 03:43
Home Medications
ergocalciferol (vitamin D2) 1,250 mcg (50,000 unit) capsule 50,000 units PO MONTHLY Supplement 04/09/21
multivitamin with folic acid 400 mcg tablet (Tab-A-Viviana) 1 tab PO DAILY Supplement 04/09/21
potassium chloride 20 mEq tablet,extended release (K-Tab) 20 meq PO DAILY Electrolyte Repletion 08/05/21
mycophenolate sodium 180 mg tablet,delayed release 360 mg PO BID Transplant 08/07/21
aspirin 81 mg tablet,delayed release 81 mg PO DAILY Blood Clot Prevention/Tx 12/10/21
tacrolimus 1 mg tablet,extended release 24 hr (Envarsus XR) 3 mg PO DAILY Transplant 12/10/21
terazosin 2 mg capsule 2 mg PO BID Blood Pressure 12/10/21
cinacalcet 60 mg tablet 90 mg PO QPM Kidney Disease 06/04/23
magnesium oxide 400 mg (241.3 mg magnesium) tablet 400 mg PO BID Electrolyte Repletion 06/04/23
metoprolol tartrate 50 mg tablet 50 mg PO DAILY Blood Pressure 06/04/23
metoprolol tartrate 50 mg tablet (Lopressor) 75 mg PO HS Blood Pressure 06/04/23
prednisone 5 mg tablet 5 mg PO Q48H@0800 Transplant 06/04/23
sodium di- and monophosphate-potassium phos monobasic 250 mg tablet (Phospha Neutral) 1 tab PO DAILY Electrolyte Repletion 06/04/23
spironolactone 25 mg tablet 25 mg PO DAILY@2000 Fluid Retention/Swelling 06/04/23
atorvastatin 40 mg tablet 40 mg PO QPM #30 tabs 06/09/23
cyanocobalamin (vitamin B-12) 1,000 mcg tablet 1,000 mcg PO DAILY #30 tabs 06/09/23
hydralazine 25 mg tablet 25 mg PO TID #90 tabs 06/09/23
Review of Systems
-
History Source: Patient
A 12 point ROS was completed and negative except as noted: Yes
Constitutional: Reports Fatigue; Denies Fever or Chills
EENT: Denies Sore Throat
Respiratory: Denies Cough or Trouble Breathing
Cardiac: Reports Diaphoresis and Syncope; Denies Chest Pain or Palpitations
Abdomen/GI: Reports Nausea; Denies Abdominal Pain, Vomiting, Diarrhea or Constipated
: Denies Dysuria, Frequency or Flank Pain
Musculoskeletal: Denies Joint Pain or Edema
Neurological: Reports Dizzy, Headache, Numbness and Other (Ataxia, Temperature intolerance); Denies Weakness
Psych: Denies Depression or Anxiety
Physical Exam
Vital Signs
Vital Signs
Temp Pulse Resp BP Pulse Ox
98.1 F 59 10 162/97 99
06/10/23 23:11 06/11/23 02:00 06/11/23 02:00 06/11/23 02:00 06/11/23 02:00
Physical Exam
General: Other (58y M in no acute distress.)
HEENT: Moist mucous membranes and PERRLA
Respiratory: Clear; No Wheezes, Rales or Rhonchi
Cardiac: S1/S2 and Regular Rhythm; No Murmur
GI: Soft, Non Tender, Non Distended and Normal Bowel Sounds
Musculoskeletal: No Clubbing, No Cyanosis and No Edema
Neuro: AO x 3 and Other (Strength is intact. Decreased sensation on the L (face to LE). Abnormal [id number] with LUE. Altered temperature sensation on the R.)
Psych: No Anxious or Depressed
Laboratory Results
-
06/10/23 23:48
06/10/23 23:48
Laboratory Results
Total Bilirubin 0.6 mg/dl (0.2-1.3) 06/10/23 23:48
AST 19 U/L (17-59) 06/10/23 23:48
ALT 27 U/L (0-50) 06/10/23 23:48
Alkaline Phosphatase 82 U/L (38-126) 06/10/23 23:48
Impression/Plan
-
A/P: Patient is a 58y M with PMH significant for CKD / ADPKD s/p renal transplant, ASCVD, HTN and recent CVA who presents to ED from [facility] for evaluation s/p syncopal event.
Syncope
- Observe overnight for further evaluation and treatment.
- Events sounds most c/w vasovagal syncope / micturition syncope.
- Pulse in the 40s on arrival to the ED - ? lower at [place] as CPR was briefly initiated.
- Monitor on telemetry.
- Gentle IVFs overnight.
- Decrease PM dose of metoprolol for now.
- PT / OT evals in the AM.
- Follow for any new / worsening symptoms.
ASCVD
Left Medullary CVA
- No new focal symptoms per patient.
- Continue PT / OT.
- Continue efforts at adequate BP control.
- Neurology evaluation in light of new event - though, as noted above, sounds most c/w vasovagal episode.
- Continue ASA - note: patient indicates that he has been on DAPT on two separate occasions in the past, without adverse effects - despite chronic thrombocytopenia.
Multidrug Resistant Hypertension
Supine Hypertension
- Difficult scenario with attempts at BP control while supine without triggering orthostatic symptoms while upright.
- Decrease metoprolol at HS as noted above.
- Continue other BP medications without change for now.
- Follow for BP control / lightheadedness / hypotension / etc.
- Adjust med regimen as needed.
CHLOE on CKD
- SCr = 1.6 compared to baseline of 1.1 - 1.3.
- Likely secondary to transient hypotension / hypoperfusion during syncope.
- Gentle IVFs overnight.
- Holding parameters for BP meds/ avoid hypotension.
- Follow for return to baseline renal function.
s/p Renal Transplant
- Follow renal function as noted above.
- Continue current antirejection med regimen without changes.
- Consider Nephrology evaluation if renal function declines.
Hyperparathyroidism
Hypercalcemia
- Calcium has remained consistently elevated.
- Continue cinacalcet for now.
- IVFs as noted above.
- Follow for changes.
Chronic Thrombocytopenia
- No active evidence of bleeding.
- Other cell counts remain stable.
- See note above re: prior tolerance of DAPT.
DVT Prophylaxis: SCDs
Code Status: Full
[2023-06-11] MEDS: NSS 1000 IV ×2 (05:27→17:21)
[2023-06-11 05:48] LABS: Hematocrit 42.5 % (39.0-52.0); Hemoglobin 15.4 g/dL (13.0-18.0); Mean Corp Hgb Conc. 36.2 g/dL (33.0-37.0); Mean Corpuscular Volume 85.5 fL (80.0-94.0); Mean Platelet Volume 9.2 fL (7.4-10.4); Platelet Count 73 10^3/uL (130-400); Red Blood Cell Count 4.97 10^6/uL (4.70-6.10); Red Cell Dist. Width 12.6 % (11.5-14.5); White Blood Cell Count 6.7 10^3/uL (4.8-10.8)
[2023-06-11 06:13] LABS: Blood Urea Nitrogen 46 mg/dl (9-20); Calcium 10.7 mg/dl (8.4-10.2); Carbon Dioxide 22 mmol/L (22-30); Chloride 103 mmol/L (98-107); Estimated Creatinine Clearance 64 ml/min; Glucose 136 mg/dl (70-99); Magnesium 1.9 mg/dl (1.6-2.3); Phosphorus 3.7 mg/dl (2.5-4.5); Potassium 5.1 mmol/L (3.5-5.1); Sodium 134 mmol/L (135-145); eGFR 58.99
--- NOTE | 2023-06-11 06:29 | PTCARENOTE ---
Patient arrived from the ED at approximately 0500. Patient pivoted from stretcher to bed x1 assist. Patient AAOx3. NIH completed due to patient's history - See documentation. Assessment as documented. VSS as documented. Patient oriented to room. Bed
in lowest position. Call galvez within reach.
--- NOTE | 2023-06-11 07:08 | CON.NEURO4 ---
Consultation - Neurology 4
-
CONSULTING PHYSICIAN: Charlotte Vilchis
REFERRING PHYSICIAN: Hospitalist
DICTATED BY: Charlotte Vilchis
DATE/TIME OF REQUEST: 06/11/22
DATE/TIME OF CONSULTATION: 06/11/22
Reason for Consultation: Recent stroke, episode of syncope
History of Present Illness: Patient is a 58 year old man with history of recent left medulla ischemic stroke presenting to hospital after syncopal episode at rehab.
Patient reports had been sitting down to urinate, felt a bit unwell sitting down and then shortly after standing and getting up felt dizzy and next thing he was waking up on the floor with medical personnel around him. Reports his stroke sensory
symptoms seemed more notable, no new weakness, speech change or vision change, had a minor headache at the time as well. No chest pain or dyspnea. Reports a previous loss of consciousness associated with low hemoglobin. Feels back to baseline
now. Ate dinner fine last night without any dysphagia. Reports gait is abnormal but improving.
Past Medical History: � CAD status post CABG, Renal failure s/p transplant, polycystic kidney disease, hyperparathyroidism, right BRAO, bianca cisterna magna anatomic variant, BPH
Surgical History:� Bilateral kidney removal with cadaveric kidney transplant October 2020, peritoneal dialysis port, three-vessel CABG approximately 2018
Family History:� Father had polycystic kidney disease and and CAD occurred in 40's, 5 siblings with PKD, brother- from cerebral aneurysm rupture
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
Review of Symptoms:
Patient denies any fever, headache, chest pain, shortness of breath, GI or symptoms.
Physical Exam:
Well-appearing middle-aged man no acute distress no signs of head or neck trauma oropharynx clear neck supple no masses heart rate regular breathing unlabored abdomen soft nontender no lower extremity edema or rash
Neurologic Examination:
The patient is awake, alert and oriented x 3. He is able to follow commands and answer questions appropriately. There is no aphasia or dysarthria. On cranial nerve assessment there is left eye ptosis, left beating rotary nystagmus on left gaze, EOM
otherwise normal, no dysarthria, smile symmetric, visual hall full. Power 5/5, no pronator drift, loss of light touch and pinprick on left face/arm/leg, loss of temperature on right face/arm/leg. Left arm and leg ataxia. Reflexes symmetric
throughout. Gait deferred
Impressions
1. Likely combination of vagal and orthostatic etiology of syncope, vertebral artery occlusion could make it easier to have syncope as well but no role for intervention on this occlusion given risks.
2. Recent left sided medullary stroke associated with left vertebral occlusion, very likely atheroembolic etiology due to long standing hypertension and renal impairment. Deficits of partial left wallenburg syndrome and significant gait ataxia
3. Chronic hypertension
4. s/p renal transplant
Recommendations:
1. Check orthostatic vital signs
2. After discussion about medications and stroke prevention, patient desires switching from aspirin to clopidogrel. Would stop aspirin, give 300 mg clopidogrel today and start 75 mg daily clopidogrel tomorrow
3. Mobilization
4. Monitor on cardiac telemetry
5. Not recommending further MRI or MRA studies
6. Continue Atorvastatin 40 mg daily
7. Follow blood pressures and adjust meds accordingly
Will follow as needed call with questions and concerns
Discussed patient care with: Patient
--- NOTE | 2023-06-11 08:14 | CON.CAR ---
Addendum entered and electronically signed by Navin Luna MD 06/11/23 12:00:
I saw and examined the patient.
The Thread Inspector's note was reviewed and I agree with the note.
Comment: Briefly, 58-year-old man with complex past medical history including prior renal transplant and labile hypertension as well as prior CVA who presented from [facility] after a syncopal episode
From what he tells me he was urinating last evening and began to feel lightheaded and diaphoretic prior to loss of consciousness - this seems most consistent with vasovagal or micturition syncope by his report
Initially was bradycardic in the emergency department
Would recommend decreasing his beta-luis dose
Monitor on telemetry while he is here
Can consider outpatient monitoring analyst
New to hydralazine, this could be uptitrated for better blood pressure control if needed
Original Note:
Consultation
Consultation Request
Date/Time Consultation Requested: 06/11/23 at 0807
Date/Time Consultation Performed: 06/11/23 at 0900
Requesting Provider: Dr. Ferguson
Performing Provider: Dr. Luna
Reason for Consultation: Syncope, bradycardia
Medical History
-
History of Present Illness:
[facility] last night after an episode of syncope. Patient has a complex PMH. Patient has PCKD and after years of PD he had a renal transplant at [facility] in 2020. He had acute rejection,
but with adjustments in antirejection meds he improved. Since then he has followed with Dr. Mcmahan and felt that he was doing well until the last year when he started with supine/nocturnal HTN manifested as HAs that would wake him from sleep.
Patient's meds have been adjusted including increasing Lopressor to 50 mg AM and 75 mg PM and the addition of spironolactone 25 mg HS. This seemed to be working until he started with HAs and increasing BPs at home prompting an ER visit 06/03/23. The
ER talked with Nephrology office and there was a recommendation for clonidine that he patient declined due to a previous experience with that med when he felt like it did not work for him. Patient went home and returned hours later with right vs
left sensory changes and HTN urgency. He had an MRI and was seen by Neurology and it was felt that his symptoms were due to HTN neurologic changes because the MRI was normal. Patient was again discharged to home. He returned to [facility] with [facility] and
weakness 06/09/23 and was seen by Neurology again and had another MRI that showed a new acute left medulla CVA. CVA thought to be from small vessel ischemic disease with HTN being more of a result of the CVA and not so much a cause of the
CVA/neurologic symptoms. Patient was not started on Plavix due to chronic thrombocytopenia. He was sent to [facility]. Following his first full day of PT yesterday he had to urinate at about midnight. He was able to stand and pivot to wheelchair,
then transfer from wheelchair to toilet to urinate and then when he stood to pivot from the toilet back to the wheelchair he was lightheaded and diaphoretic. Patient then had syncope and awoke to chest compressions being performed. Patient was
reportedly hypotensive and bradycardic and when he failed to respond to a sternal rub chest compressions were started. Patient was then sent to [facility] and HR in the 50s by ECG. He now feels better and would like to go back to [place] to continue with his
rehab.
PMH:
Recent ER visit for HTN, patient declined med changes 06/03/23
Recent admission paresthesias/sensory loss, HTN urgency 06/04/23 until 06/05/23
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
Transferred to [place] 06/09/23
Nocturnal/supine HTN
CAD
s/p LAD and Circ stents 2017
s/p with CANELA to LAD, SVG to OM-3 seq to distal RCA 07/04/19
PCKD s/p renal transplant 11/2020
Chronic immunosuppressive therapy
Secondary hyperparathyroidism
Hyperlipidemia
GERD
Anemia
Chronic thrombocytopenia
Past Medical History
Past Medical History: Other (in HPI)
Past Surgical History: Cardiac (s/p CABG 2019), Urological (s/p renal transplant at [facility] 11/2020) and Other (previous PD port site)
Social History
Tobacco: Other (previously smoked and vaped marijuana, but none since 2019)
Alcohol: None
Drug: None
Personal:
Living: With Family
Employment: Disabled
Family History
Family History: Cancer and Other (PCKD)
Allergies / Home Medications
Allergy/AdvReac Type Severity Reaction Status Date / Time
No Known Allergies Allergy Verified 06/04/23 03:43
Medication Instructions Recorded Confirmed Type
ergocalciferol (vitamin D2) 1,250 50,000 units PO MONTHLY Supplement 04/09/21 06/11/23 History
mcg (50,000 unit) capsule
multivitamin with folic acid 400 1 tab PO DAILY Supplement 04/09/21 06/11/23 History
mcg tablet (Tab-A-Viviana)
potassium chloride 20 mEq 20 meq PO DAILY Electrolyte 08/05/21 06/11/23 History
tablet,extended release (K-Tab) Repletion
mycophenolate sodium 180 mg 360 mg PO BID Transplant 08/07/21 06/11/23 History
tablet,delayed release
aspirin 81 mg tablet,delayed 81 mg PO DAILY Blood Clot 12/10/21 06/11/23 History
release Prevention/Tx
tacrolimus 1 mg tablet,extended 3 mg PO DAILY Transplant 12/10/21 06/11/23 History
release 24 hr (Envarsus XR)
terazosin 2 mg capsule 2 mg PO BID Blood Pressure 12/10/21 06/11/23 History
cinacalcet 60 mg tablet 90 mg PO QPM Kidney Disease 06/04/23 06/11/23 History
magnesium oxide 400 mg (241.3 mg 400 mg PO BID Electrolyte Repletion 06/04/23 06/11/23 History
magnesium) tablet
metoprolol tartrate 50 mg tablet 50 mg PO DAILY Blood Pressure 06/04/23 06/11/23 History
metoprolol tartrate 50 mg tablet 75 mg PO HS Blood Pressure 06/04/23 06/11/23 History
(Lopressor)
prednisone 5 mg tablet 5 mg PO Q48H@0800 Transplant 06/04/23 06/11/23 History
sodium di- and 1 tab PO DAILY Electrolyte 06/04/23 06/11/23 History
monophosphate-potassium phos Repletion
monobasic 250 mg tablet (Phospha
Neutral)
spironolactone 25 mg tablet 25 mg PO DAILY@2000 Fluid 06/04/23 06/11/23 History
Retention/Swelling
atorvastatin 40 mg tablet 40 mg PO QPM #30 tabs 06/09/23 06/11/23 Rx
cyanocobalamin (vitamin B-12) 1,000 mcg PO DAILY #30 tabs 06/09/23 06/11/23 Rx
1,000 mcg tablet
hydralazine 25 mg tablet 25 mg PO TID #90 tabs 06/09/23 06/11/23 Rx
Review of Systems
-
History Source: Patient
All other systems: Negative unless noted
Physical Exam
Vital Signs
Temp Pulse Resp BP Pulse Ox
97.5 F 76 20 162/95 95
06/11/23 07:49 06/11/23 07:49 06/11/23 07:49 06/11/23 07:49 06/11/23 07:49
General:�NAD. AAO x3
Skin: Warm, dry and pink. No rash
HEENT: EOMI, MMM
Heart: Regular, no murmur
Lungs: CTA B/L without wheeze or rales
Abd: +BS, ND, NT, soft
Ext: No clubbing, cyanosis, lesions or edema B/L
Neuro: nonfocal
Lab Results
06/11/23 05:18
06/11/23 05:18
Impression / Plan
-
PCP: Dr. Moreau
Cardiology: Dr. Vanessa
Nephrology: Dr. Mcmahan, transplant center is [facility]
Impression:
Syncope 06/10/23
Recent ER visit for HTN, patient declined med changes 06/03/23
Recent admission paresthesias/sensory loss, HTN urgency 06/04/23 until 06/05/23
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
Transferred to [facility] 06/09/23
Nocturnal/supine HTN
CAD
s/p LAD and Circ stents 2017
s/p with CANELA to LAD, SVG to OM-3 seq to distal RCA 07/04/19
PCKD s/p renal transplant 11/2020
Chronic immunosuppressive therapy
Secondary hyperparathyroidism
Hyperlipidemia
GERD
Anemia
Chronic thrombocytopenia
ECHO 06/26/20: EF 45%, basal-mid anteroseptal, basal-mid anterior, inferior hypokinesis, mildly dilated LA
Echo 06/04/23: EF 55-60%, no MR, no
Plan:
-Patient was sent from [facility] to [facility] last night after an episode of syncope. Patient has a complex PMH. Patient has PCKD and after years of PD he had a renal transplant at [facility] in 2020. He had acute rejection,
but with adjustments in antirejection meds he improved. Since then he has followed with Dr. Mcmahan and felt that he was doing well until the last year when he started with supine/nocturnal HTN manifested as HAs that would wake him from sleep.
Patient's meds have been adjusted including increasing Lopressor to 50 mg AM and 75 mg PM and the addition of spironolactone 25 mg HS. This seemed to be working until he started with HAs and increasing BPs at home prompting an ER visit 06/03/23. The
ER talked with Nephrology office and there was a recommendation for clonidine that he patient declined due to a previous experience with that med when he felt like it did not work for him. Patient went home and returned hours later with right vs
left sensory changes and HTN urgency. He had an MRI and was seen by Neurology and it was felt that his symptoms were due to HTN neurologic changes because the MRI was normal. Patient was again discharged to home. He returned to [facility] with [facility] and
weakness 06/09/23 and was seen by Neurology again and had another MRI that showed a new acute left medulla CVA. CVA thought to be from small vessel ischemic disease with HTN being more of a result of the CVA and not so much a cause of the
CVA/neurologic symptoms. Patient was not started on Plavix due to chronic thrombocytopenia. He was sent to [facility]. Following his first full day of PT yesterday he had to urinate at about midnight. He was able to stand and pivot to wheelchair,
then transfer from wheelchair to toilet to urinate and then when he stood to pivot from the toilet back to the wheelchair he was lightheaded and diaphoretic. Patient then had syncope and awoke to chest compressions being performed. Patient was
reportedly hypotensive and bradycardic and when he failed to respond to a sternal rub chest compressions were started. Patient was then sent to [facility] and HR in the 50s by ECG. He now feels better and would like to go back to [place] to continue with his
rehab.
-Extensive distant and recent PMH outlined above. Patient has had syncope in the past with dialysis, but this episode was different. Sounds like an episode of micturition syncope. Complicating matters is his complex HTN including recent changes by
nephrology to help manage increasing nocturnal/supine HTN by increasing Lopressor and adding spironolactone.
-Patient does not want to eliminate Lopressor and states that stopping BB in the past has caused palpitations and racing heart. Will decrease Lopressor to 25 mg BID.
-Could try to increase spironolactone, but Cre is 1.4 with transplanted kidney and potassium is 5.1. Nephrology has been managing his HTN primarily and they saw him during one of his recent admissions.
-Recommend staying well hydrated.
-Would avoid lying down during the day and if tired should rest in a seated position. Keep HOB at 30-45 degrees when sleeping at night. A carb heavy snack before bed might lower BP.
-No need to repeat echo
-ECG reviewed by me with sinus bradycardia
-Neurology has decided to change aspirin to Plavix for 3 weeks and then resume aspirin thereafter. Patient with known chronic thrombocytopenia.
--- NOTE | 2023-06-11 08:29 | W.PN.HOSP.TC ---
Today's Communication/Plan
-
IV fluids, monitor orthostatic, cardiac monitoring.
Assessment / Plan
Assessment / Plan
Physical exam:
General: Well Developed, Well Nourished and No Apparent Distress
HEENT: Normocephalic, Atraumatic and Moist Mucous Membranes
Respiratory: Clear to Auscultation; Negative Wheezes, Rales or Rhonchi
Cardiac: Regular Rhythm and S1/S2
GI: Soft, Nontender and Nondistended
Musculoskeletal: No Clubbing, No Cyanosis and No Edema
Neuro: Awake, Alert and Oriented. Left face and left side body decree sensation, left eye ptosis, left nystagmus, left [id number] dysmetria, left upper extremity and bilateral lower extremity ataxia, strength 4 out of 5 all 4 extremities.
Temperature dysregulation on right side of his body.
Psych: Anxious.
A/P:
Syncope
-Etiology of his syncope appears multifactorial likely micturition syncope/vasovagal and orthostatic syncope, in the setting of vertebral artery occlusion.
-IV fluids
-Continue monitoring manager
-We discussed the possibility of starting midodrine, but given he has nocturnal hypertension we will hold off for now and reevaluate.
-Cardiology consult
-Neurology consult
-Will give further recommendations patient's clinical course
-After medical stabilization he should be able to go back to acute rehab over the next 24 to 48 hours.
�
ASCVD
Left Medullary CVA, prior to admission
�- No new focal symptoms.
�-Neurology consult appreciated
-Discontinued aspirin and started on Plavix.
-Continue statins
-No need for further images
�- Continue PT / OT.
�- Continue efforts at adequate BP control.
Multidrug Resistant Hypertension
Supine Hypertension
�- Difficult scenario with attempts at BP control while supine without triggering orthostatic symptoms while upright.
�- Decrease metoprolol at HS as noted above.
�- Continue other BP medications without change for now.
�- Follow for BP control / lightheadedness / hypotension / etc.
�- Adjust med regimen as needed.
-Cardiology consult for help in terms of current antihypertensive regimen and syncope/bradycardia event.
CHLOE on CKD
�- SCr = 1.6 compared to baseline of 1.1 - 1.3.
�- Likely secondary to transient hypotension / hypoperfusion during syncope.
�- Gentle IVFs to continue for 24 more hours.
�- Holding parameters for BP meds/ avoid hypotension.
�- Follow for return to baseline renal function.
s/p Renal Transplant
�- Follow renal function as noted above.
�- Continue current antirejection med regimen without changes.
�- Consider Nephrology evaluation if renal function declines.
Hyperparathyroidism
Hypercalcemia
�- Calcium has remained consistently elevated.
�- Continue cinacalcet for now.
�- IVFs as noted above.
�- Follow for changes.
Chronic Thrombocytopenia
�- No active evidence of bleeding.
�- Other cell counts remain stable.
�- See note above re: prior tolerance of DAPT.
DVT Prophylaxis:� SCDs
Code Status:� Full
Anticipated Discharge: 24 - 48 hours
Subjective/Interval History
-
Date of Service: June 11, 2023
Patient feels overall better today. He is orthostatic this morning. Denies chest pain or shortness of breath. Denies worsening of his neurological symptoms.
Objective Data
-
Labs:
Laboratory Results
06/10/23 06/11/23
23:48 05:18
WBC 8.3 6.7
Hgb 15.1 15.4
Hct 41.8 42.5
Plt Count 102 L 73 L D
Sodium 136 134 L
Potassium 4.3 5.1
Chloride 100 103
Carbon Dioxide 26 22
BUN 45 H 46 H
Creatinine 1.6 H 1.4 H
Glucose 161 H 136 H
Calcium 11.0 H 10.7 H
Total Bilirubin 0.6
AST 19
ALT 27
Alkaline Phosphatase 82
Vital Signs:
Vital Signs
Temp Pulse Resp BP Pulse Ox
97.5 F 76 20 162/95 95
06/11/23 07:49 06/11/23 07:49 06/11/23 07:49 06/11/23 07:49 06/11/23 07:49
I&O
06/10/23 06/11/23 06/12/23
06:59 06:59 06:59
Intake Total 280 / 280
Output Total 450 / 450
Balance -170 / -170
Review of Systems
-
All other systems: Reviewed and negative
[2023-06-11] MEDS: MYFORTIC DELAYED REL. 360 MG PO ×2 (09:09→20:14)
[2023-06-11] MEDS: DRISDOL (VITAMIN D2) 50000 UNITS PO (09:09)
[2023-06-11] MEDS: DELTASONE 5 MG PO (09:10)
[2023-06-11] MEDS: KCL 20 MEQ PO (09:10)
[2023-06-11] MEDS: LOPRESSOR 50 MG PO ×2 (09:11→21:47)
[2023-06-11] MEDS: VITAMIN B-12 1000 MCG PO (09:11)
[2023-06-11] MEDS: MAGNESIUM OXIDE 500 MG PO ×2 (09:12→20:15)
[2023-06-11] MEDS: APRESOLINE 25 MG PO ×2 (09:12→21:47)
[2023-06-11] MEDS: THERAGRAN 1 TABLET PO (09:12)
[2023-06-11] MEDS: NEUTRA-PHOS POWDER PACKET 250 MG PO (09:13)
[2023-06-11] MEDS: HYTRIN 2 MG PO ×2 (09:13→20:15)
[2023-06-11] MEDS: ENVARSUS XR 3 MG PO (09:15)
[2023-06-11] MEDS: PLAVIX 300 MG PO (10:05)
--- NOTE | 2023-06-11 10:17 | CM ---
Patient was admitted directly from [facility] in for syncopal episode. prior to previous hospitalization, patient was independent in ADL's, lives w in 2 story home with no steps to enter, 1/2 bath 1st floor, 2 full baths and bedrooms on
2nd, Does not use DME or O2. Had a kidney transplant in November 2020, patient support system is and large family. Pharmacy is [facility] on [address] in [place] and PCP is Dr. Skinny Moreau at [facility]. Discharge plan of care is to return to
[facility] in for resumption of rehab.
[2023-06-11] MEDS: TYLENOL 650 MG PO (15:41)
[2023-06-11] MEDS: APRESOLINE PO (15:44)
[2023-06-11] MEDS: LIPITOR 40 MG PO (17:20)
[2023-06-11] MEDS: SENSIPAR 90 MG PO (17:21)
[2023-06-11] MEDS: ALDACTONE 25 MG PO (20:15)
--- NOTE | 2023-06-11 21:04 | PTCARENOTE ---
Pt aaox3, called this nurse in the room agitated and requesting IVF to be stopped stating 'I just want to have a good night sleep and I don't need the fluids running', 'I am hydrated enough and I will have a talk with doc who ordered it as it seems
that they are not educated enough on kidney function'. Pt educated on electrolytes imbalance and in kidney function based on labs, also offered to have fluids changed into a lowered rate, continued refusing. ENGRAVING SUPERVISOR bilingual receptionist made aware, po fluids
encouraged and offered to pt.
[2023-06-12] VITALS (7 sets, daily range): BP systolic 102–138; BP diastolic 51–81; PULSE 74–86; BMI 27.3
[2023-06-12] MEDS: TYLENOL 650 MG PO ×2 (05:02→09:28)
[2023-06-12] MEDS: NSS IV (05:33)
[2023-06-12 05:38] LABS: Hematocrit 42.8 % (39.0-52.0); Hemoglobin 15.2 g/dL (13.0-18.0); Mean Corp Hgb Conc. 35.5 g/dL (33.0-37.0); Mean Corpuscular Hgb 30.7 pg (27.0-31.0); Mean Corpuscular Volume 86.5 fL (80.0-94.0); Mean Platelet Volume 9.4 fL (7.4-10.4); Platelet Count 89 10^3/uL (130-400); Red Blood Cell Count 4.95 10^6/uL (4.70-6.10); Red Cell Dist. Width 12.7 % (11.5-14.5); White Blood Cell Count 7.4 10^3/uL (4.8-10.8)
[2023-06-12 06:08] LABS: Blood Urea Nitrogen 33 mg/dl (9-20); Calcium 10.5 mg/dl (8.4-10.2); Carbon Dioxide 22 mmol/L (22-30); Chloride 104 mmol/L (98-107); Estimated Creatinine Clearance 64 ml/min; Glucose 116 mg/dl (70-99); Potassium 4.2 mmol/L (3.5-5.1); Sodium 138 mmol/L (135-145); eGFR 58.99
--- NOTE | 2023-06-12 08:28 | W.PN.HOSP.TC ---
Today's Communication/Plan
-
Continue current management. Discharge planning in progress.
Assessment / Plan
Assessment / Plan
Physical exam:
General: Well Developed, Well Nourished and No Apparent Distress
HEENT: Normocephalic, Atraumatic and Moist Mucous Membranes
Respiratory: Clear to Auscultation; Negative Wheezes, Rales or Rhonchi
Cardiac: Regular Rhythm and S1/S2
GI: Soft, Nontender and Nondistended
Musculoskeletal: No Clubbing, No Cyanosis and No Edema
Neuro: Awake, Alert and Oriented. Left face and left side body decree sensation, left eye ptosis, left nystagmus, left [id number] dysmetria, left upper extremity and bilateral lower extremity ataxia, strength 4 out of 5 all 4 extremities.
Temperature dysregulation on right side of his body.
Psych: Anxious.
A/P:
Syncope
-Etiology of his syncope appears multifactorial likely micturition syncope/vasovagal and orthostatic syncope, in the setting of vertebral artery occlusion.
-Off IV fluids
-Continue manager monitoring
-We discussed the possibility of starting midodrine, but given he has nocturnal hypertension we will hold off for now and reevaluate. For now hold off on midodrine.
-Cardiology consult
-Neurology consult
-Will give further recommendations patient's clinical course
-After medical stabilization he should be able to go back to acute rehab over the next 24 to 48 hours.
�
ASCVD
Left Medullary CVA, prior to admission
�- No new focal symptoms.
�-Neurology consult appreciated
-Discontinued aspirin and started on Plavix.
-Continue statins
-No need for further images
�- Continue PT / OT.
�- Continue efforts at adequate BP control.
Multidrug Resistant Hypertension
Supine Hypertension
�- Difficult scenario with attempts at BP control while supine without triggering orthostatic symptoms while upright.
�- Decrease metoprolol at HS as noted above.
�- Continue other BP medications without change for now.
�- Follow for BP control / lightheadedness / hypotension / etc.
�- Adjust med regimen as needed.
-Cardiology consult for help in terms of current antihypertensive regimen and syncope/bradycardia event.
CHLOE on CKD
�- SCr = 1.6 compared to baseline of 1.1 - 1.3. Today creatinine is 1.4
�- Likely secondary to transient hypotension / hypoperfusion during syncope.
�- Gentle IVFs to continue for 24 more hours.
�- Holding parameters for BP meds/ avoid hypotension.
�- Follow for return to baseline renal function.
s/p Renal Transplant
�- Follow renal function as noted above.
�- Continue current antirejection med regimen without changes.
�- Consider Nephrology evaluation if renal function declines.
Hyperparathyroidism
Hypercalcemia
�- Calcium has remained consistently elevated.
�- Continue cinacalcet for now.
�- IVFs as noted above.
�- Follow for changes.
Chronic Thrombocytopenia
�- No active evidence of bleeding.
�- Other cell counts remain stable.
�- See note above re: prior tolerance of DAPT.
DVT Prophylaxis:� SCDs
Code Status:� Full
Anticipated Discharge: Today
Subjective/Interval History
-
Date of Service: June 12, 2023
Patient denies any chest pain or shortness of breath. Denies any worsening neurodeficits but still very ataxic.
Objective Data
-
Labs:
Laboratory Results
06/12/23
05:09
WBC 7.4
Hgb 15.2
Hct 42.8
Plt Count 89 L D
Sodium 138
Potassium 4.2
Chloride 104
Carbon Dioxide 22
BUN 33 H
Creatinine 1.4 H
Glucose 116 H
Calcium 10.5 H
Vital Signs:
Vital Signs
Temp Pulse Resp BP Pulse Ox
97.7 F 75 18 117/76 95
06/12/23 08:14 06/12/23 08:14 06/12/23 08:14 06/12/23 08:14 06/12/23 08:14
I&O
06/11/23 06/12/23 06/13/23
06:59 06:59 06:59
Intake Total 280 / 280 2220 / 2220
Output Total 450 / 450 2600 / 2600
Balance -170 / -170 -380 / -380
Review of Systems
-
All other systems: Reviewed and negative
[2023-06-12] MEDS: MAGNESIUM OXIDE 500 MG PO (09:18)
[2023-06-12] MEDS: HYTRIN 2 MG PO (09:18)
[2023-06-12] MEDS: KCL 20 MEQ PO (09:19)
[2023-06-12] MEDS: VITAMIN B-12 1000 MCG PO (09:19)
[2023-06-12] MEDS: THERAGRAN 1 TABLET PO (09:19)
[2023-06-12] MEDS: PLAVIX 75 MG PO (09:19)
[2023-06-12] MEDS: LOPRESSOR 50 MG PO (09:20)
[2023-06-12] MEDS: ENVARSUS XR 3 MG PO (09:20)
[2023-06-12] MEDS: APRESOLINE 25 MG PO (09:20)
[2023-06-12] MEDS: MYFORTIC DELAYED REL. 360 MG PO (09:21)
[2023-06-12] MEDS: NEUTRA-PHOS POWDER PACKET 250 MG PO (09:21)
[2023-06-12] MEDS: LIORESAL 2.5 MG PO (09:27)
--- NOTE | 2023-06-12 09:27 | W.PN.CARDCBS ---
Addendum entered and electronically signed by Hector Romero MD 06/12/23 14:19:
Orthostatics negative
Addendum entered and electronically signed by Hector Romero MD 06/12/23 14:18:
I saw and examined the patient.
The LITIGATION MANAGER or PA's note was reviewed and I agree with the note.
Comment: General: Well developed, well nourished in NAD.
Heart rate stable on lower dose of Lopressor.
Syncope likely vasovagal
Stable cardiology status for transfer to [place]
Will sign off, call with questions
Original Note:
Today's Communication / Plan
-
Continue lower dose of Lopressor
Recheck orthostatic vitals
Outpatient cardiology follow up has been arranged
Impression / Plan
-
PCP: Dr. Moreau
Cardiology: Dr. Vanessa
Nephrology: Dr. Mcmahan, transplant center is [facility]
Impression:
Presented w/ Syncope following urination 06/10/23
Recent ER visit for HTN, patient declined med changes 06/03/23
Recent admission paresthesias/sensory loss, HTN urgency 06/04/23 until 06/05/23
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
Transferred to [place] [facility] 06/09/23
Nocturnal/supine HTN
CAD
s/p LAD and Circ stents 2017
s/p with CANELA to LAD, SVG to OM-3 seq to distal RCA 07/04/19
chronic CKD s/p renal transplant 11/2020
Chronic immunosuppressive therapy
Secondary hyperparathyroidism
Hyperlipidemia
GERD
Anemia
Chronic thrombocytopenia
ECHO 06/26/20: EF 45%, basal-mid anteroseptal, basal-mid anterior, inferior hypokinesis, mildly dilated LA
Echo 06/04/23: EF 55-60%, no MR, no
Plan:
-Presented 06/10/2023 w/ syncope following urination, was symptomatic with lightheadedness. Suspect vasovagal or micturition syncope.
-Noted to be bradycardic initially. Patient did not want to eliminate Lopressor and states that stopping BB in the past has caused palpitations and racing heart. Decreased Lopressor to 50 mg BID (was on 50 mg in am and 75 mg in evening)
-Heart rates stable on lower dose Lopressor and no significant johnny arrhythmia or heart block noted on tele overnight.
-If further episodes of near syncope/syncope could consider outpt monitor
-Supine Hypertension with evidence of mild orthostasis. Getting gentle IVF. BP is reasonably controlled and may need to allow for some permissive HTN.
-Would repeat orthostatics today.
-Renal function improved 1.6->1.4 today
-Would avoid lying down during the day and if tired should rest in a seated position. Keep HOB at 30-45 degrees when sleeping at night. A carb heavy snack before bed might lower BP.
-No need to repeat echo
-Neurology has decided to change aspirin to Plavix for 3 weeks and then resume aspirin thereafter. Patient with known chronic thrombocytopenia.
Consult HPI 06/11/2023:
Patient was sent from [facility] to [facility] last night after an episode of syncope. Patient has a complex PMH. Patient has PCKD and after years of PD he had a renal transplant at [facility] in 2020. He had acute rejection,
but with adjustments in antirejection meds he improved. Since then he has followed with Dr. Mcmahan and felt that he was doing well until the last year when he started with supine/nocturnal HTN manifested as HAs that would wake him from sleep.
Patient's meds have been adjusted including increasing Lopressor to 50 mg AM and 75 mg PM and the addition of spironolactone 25 mg HS. This seemed to be working until he started with HAs and increasing BPs at home prompting an ER visit 06/03/23. The
ER talked with Nephrology office and there was a recommendation for clonidine that he patient declined due to a previous experience with that med when he felt like it did not work for him. Patient went home and returned hours later with right vs
left sensory changes and HTN urgency. He had an MRI and was seen by Neurology and it was felt that his symptoms were due to HTN neurologic changes because the MRI was normal. Patient was again discharged to home. He returned to [facility] with [facility] and
weakness 06/09/23 and was seen by Neurology again and had another MRI that showed a new acute left medulla CVA. CVA thought to be from small vessel ischemic disease with HTN being more of a result of the CVA and not so much a cause of the
CVA/neurologic symptoms. Patient was not started on Plavix due to chronic thrombocytopenia. He was sent to [facility]. Following his first full day of PT yesterday he had to urinate at about midnight. He was able to stand and pivot to wheelchair,
then transfer from wheelchair to toilet to urinate and then when he stood to pivot from the toilet back to the wheelchair he was lightheaded and diaphoretic. Patient then had syncope and awoke to chest compressions being performed. Patient was
reportedly hypotensive and bradycardic and when he failed to respond to a sternal rub chest compressions were started. Patient was then sent to [facility] and HR in the 50s by ECG. He now feels better and would like to go back to [place] to continue with his
rehab.
Progress Note - Produce Clerk
Subjective
Date of Service: June 12, 2023
Objective
Labs:
06/12/23 05:09
06/12/23 05:09
Labs
Hgb 15.2 g/dL (13.0-18.0) 06/12/23 05:09
Hct 42.8 % (39.0-52.0) 06/12/23 05:09
Plt Count 89 10^3/uL (130-400) L D 06/12/23 05:09
Sodium 138 mmol/L (135-145) 06/12/23 05:09
Potassium 4.2 mmol/L (3.5-5.1) 06/12/23 05:09
BUN 33 mg/dl (9-20) H 06/12/23 05:09
Creatinine 1.4 mg/dL (0.7-1.3) H 06/12/23 05:09
Glucose 116 mg/dl (70-99) H 06/12/23 05:09
Vital Signs and I&O:
Vital Signs
Temp Pulse Resp BP Pulse Ox
97.7 F 71 18 138/87 95
06/12/23 08:14 06/12/23 09:20 06/12/23 08:14 06/12/23 09:20 06/12/23 08:14
Vital Signs
Temp Pulse Resp BP Pulse Ox
97.7 F 71 18 138/87 95
06/12/23 08:14 06/12/23 09:20 06/12/23 08:14 06/12/23 09:20 06/12/23 08:14
Intake & Output
06/10/23 06/11/23 06/12/23 06/13/23
06:59 06:59 06:59 06:59
Intake Total 280 / 280 2220 / 2220
Output Total 450 / 450 2600 / 2600
Balance -170 / -170 -380 / -380
--- NOTE | 2023-06-12 12:44 | W.DCSUMMARY ---
Discharge Summary
Discharge Data
Date of Admission: 06/11/23
Date of Discharge: 06/12/23
-
Pending Results: No
Hospital Course
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
impaired glucose tolerance, anemia, hypercalcemia secondary hyperparathyroidism, left vertebral artery occlusion, right ophthalmic branch artery occlusion, GERD, vitamin D deficiency, shingles, colitis, chronic thrombocytopenia, BPH, hypertension,
hyperlipidemia, presented to the hospital from acute rehab due to a syncopal event. Patient was kept in the hospital and cardiology and neurology consulted. We agree that his event was triggered by likely a vasovagal event. Cardiology recommended
lower the dose of beta-blockers at nighttime. Neurology recommended to switch his aspirin to Plavix. He also has some hiccups and he was started on baclofen as needed by neurology. Overall he is doing better and he feels he can go back to his
regiment of rehab. Prior to this presentation he was diagnosed with brainstem stroke with Wallenberg syndrome and he was sent to acute rehab just a few days ago. Patient wanted to go home this time, but after reevaluation with physical therapy he
realizes that he would benefit from more rehab so plan is for him to go back to acute rehab.
Discharge duration: 38 minutes.
Discharge Plan
-
Patient Disposition: Acute Rehab Facility
Discharge Diagnosis/Procedures: Syncope likely related to vasovagal. Recent Medulla stroke. Hypertension.
Diet: Low Cholesterol
Activity: As tolerated
Driving Restrictions: As prior to admission
Blood Work: Please PCP to order CBC and BMP as outpatient within 1 week.
Referrals:
Navin Luna MD [Active] - in two to four weeks
Rosalie Yo DO [Active] - in two to four weeks
Janice Rnoquillo PA-C [Specified Professional Personl] - 07/01/23 4:00 pm (You have cardiology follow up with Janice Ronquillo on July 01 at 4 [address] in [address] in the [place]. If you are unable to make this appointment call [phone] to
reschedule)
Skinny Moreau MD [Family Provider] - in less than 1 week
Prescriptions:
New
clopidogrel 75 mg Tablet
75 mg PO DAILY 21 Days Qty: 21 0RF
Patient Comments:
For 21 days
metoprolol tartrate 50 mg Tablet
50 mg PO HS 30 Days Qty: 30 0RF
Continued
ergocalciferol (vitamin D2) 50,000 UNITS capsule
50,000 units PO MONTHLY
multivitamin with folic acid [Tab-A-Viviana] 1 TABLET tablet
1 tab PO DAILY
potassium chloride [K-Tab] 20 MEQ tablet extended release
20 meq PO DAILY
mycophenolate sodium 180 MG tablet,delayed release (DR/EC)
360 mg PO BID
terazosin 2 mg capsule
2 mg PO BID
Envarsus XR 1 mg tablet extended release 24 hr
3 mg PO DAILY
spironolactone 25 mg tablet
25 mg PO DAILY@1999
magnesium oxide 400 mg (241.3 mg magnesium) tablet
400 mg PO BID
metoprolol tartrate 50 mg tablet
50 mg PO DAILY
Phospha 250 Neutral 250 mg tablet
1 tab PO DAILY
cinacalcet 60 mg tablet
90 mg PO QPM
prednisone 5 mg Tablet
5 mg PO Q48H@0800
atorvastatin 40 mg Tablet
40 mg PO QPM Qty: 30 0RF
hydralazine 25 mg Tablet
25 mg PO TID Qty: 90 0RF
cyanocobalamin (vitamin B-12) 1,000 mcg Tablet
1,000 mcg PO DAILY Qty: 30 0RF
Discontinued
aspirin 81 mg Tablet,Delayed Release (Dr/Ec)
81 mg PO DAILY
metoprolol tartrate [Lopressor] 50 mg Tablet
75 mg PO HS
No Action
baclofen 5 mg tablet
2.5 mg PO DAILY PRN (Reason: Hiccups)
Patient Comments:
As needed for Hiccups for 10 days
Discharge Orders:
Discharge Patient (As Directed); Ordered 06/12/23
Ordered By: José Miguel Ferguson
Discharge Date and Time
Discharge Date/Time: 06/12/23 19:19
--- NOTE | 2023-06-12 13:05 | CM ---
Addendum entered by Ana Cabrera 06/12/23 14:59:
Patient had PT session and realizes he needs rehab. He is now willing to go to [facility]. This CM spoke with diana Patton, from [facility] and she still has his bed available. clerical secretary setting up transport to [facility].
Addendum entered by Ana Cabrera 06/12/23 14:23:
[facility]. He wants to go home. MD notified and cleared with Neuro and Cardio. OK for home. PT to re-evaluate this afternoon. Patient needs a walker for home discharge. This director case management encouraged patient to
reconsider [facility]. He is adamant he will not go and wants to discharge home today. Will send referral to patient preference for VN and PT/OT to [facility]. present and comfortable with taking patient home. diana Patton, from [facility] notified of
above.
Original Note:
[facility] Pooja Zambrano, notified and willing to accept patient. Nurse to nurse report #: [phone], Fax #: [phone]. Transport to be scheduled.
[2023-06-12] MEDS: APRESOLINE PO (15:48)
[2023-06-12] MEDS: SENSIPAR 90 MG PO (17:41)
[2023-06-12] MEDS: LIPITOR 40 MG PO (17:41)
--- NOTE | 2023-06-12 19:49 | W.PN.NEURO.1 ---
Today's Communication / Plan
-
-Switched to Plavix
-Statin
-Baclofen low dose 1-2 times PRN for the hiccups which are part of the wallenburg stroke syndrome
-No further workup or monitoring from neurologic perspective
-Neurology follow up 4 weeks as outpatient
Will sign off
Neuro Assessment/Plan
Assessment
58 year old man with recent left medulary ischemic stroke, associated left vertebral artery occlusion. Partial wallenburg syndrome.
Stroke etiology presumed atheroembolic, long standing hypertension and renal disease as risk factors.
Syncope due to combination of vagal event after urination, and probably element of orthostasis given medications for hypertension and vertebral artery occlusion may contribute as well
Subjective/Objective
Subjective Data
Date of Service: June 12, 2023
No acute events, hiccups have been bothersome today, no new symptoms, no dysphagia, feels walking is not normal but improving, no vision abnormalities
Objective Data
Vital Signs
Temp Pulse Resp BP Pulse Ox
97.5 F 76 18 127/73 98
06/12/23 15:43 06/12/23 15:48 06/12/23 15:43 06/12/23 15:48 06/12/23 15:43
Lab Results
06/12/23 05:09
06/12/23 05:09
Sodium 138 mmol/L (135-145) 06/12/23 05:09
Potassium 4.2 mmol/L (3.5-5.1) 06/12/23 05:09
BUN 33 mg/dl (9-20) H 06/12/23 05:09
Glucose 116 mg/dl (70-99) H 06/12/23 05:09
Calcium 10.5 mg/dl (8.4-10.2) H 06/12/23 05:09
Phosphorus 3.7 mg/dl (2.5-4.5) 06/11/23 05:18
Patient Allergies
No Known Allergies Allergy (Verified 06/04/23 03:43)
LDL Level: <70, continue statin
Review of Systems
-
History Source: Patient
All other systems: Reviewed and negative
Constitutional: No Symptoms
EENT: No Symptoms Reported
Respiratory: No Symptoms
Cardiac: No Symptoms
Genitourinary: No Symptoms
Musculoskeletal: No Symptoms
Skin: No Symptoms
Neuro: Ataxia and See existing Neuro Note
Endocrine: No Symptoms
Hematologic / Lymphatic: No Symptoms
Allergy / Immunology: No Symptoms
Physical Exam
-
General: No Apparent Distress
Eyes: No Ptosis
HEENT: Normocephalic and Atraumatic
Neck: No Bruits Bilaterally
Respiratory: Clear to Auscultation
Cardiac: Regular Rhythm
GI: Normal Bowel Sounds and Soft
Skin: Unremarkable
Extremities: No Clubbing
Psych: Unremarkable and Intact Judgement/Insight
Extended Neurological Exam
Mood & Affect: Mood Unremarkable and Affect Unremarkable
Attention Span & Concentration: Awake, Alert, Interactive and No Difficulty with 2 Step Request
Memory: Unremarkable
Tremor: Hand Tremor Absent
Involuntary Movement: None
Speech: Quality Unremarkable and Quantity Unremarkable; Negative Dysarthric
Cranial Nerve II: Left Eye: Pupillary Reactivity Unremarkable and Pupillary Size Unremarkable
Cranial Nerve II: Right Eye: Pupillary Reactivity Unremarkable and Pupillary Size Unremarkable
Cranial Nerves III, IV, : Extraocular Movement: Extraocular Movement Full in all Directions
Cranial Nerve V: Facial Sensation: Other (Left face decreased to cold)
Cranial Nerve VII: Facial Symmetry: Normal Facial Symmetry
Cranial Nerve VIII: Hearing: Unremarkable Hearing to Normal Conversational Volume
Muscle Strength, Overall: Full Throughout
Pronator Drift: No Drift in Lower Extremities
Deep Tendon Reflexes: Trace Throughout
Cold Sensation: Other (Reduced on right arm)
Coordination: Other (Left arm finger to nose ataxia as well as left leg ataxia on heel/trejo)
Babinski Sign: Absent Bilaterally
Modified Williamson Score (MRS)
-
MRS Score:
Data Reviewed
-
CT Head: Image Reviewed
MRI Head: Image Reviewed
Labs: Report Reviewed
== END 2023-06-12 19:19 ==
LOC: 2 NORTH 03:44
PROVIDERS: Physician Assistant; ADMITTING PHYSICIAN Hospitalist; ATTENDING PHYSICIAN Hospitalist; CONSULT PHYSICIAN Internal Medicine Cardiovascular Disease; EMERGENCY PHYSICIAN Emergency Medicine; FAMILY PHYSICIAN Family Medicine; OTHER PHYSICIAN Student in an Organized Health Care Education/Training Program
DX: R55 Syncope and collapse (principal); Z94.0 Kidney transplant status; Z86.73 Personal history of transient ischemic attack (TIA), and cerebral infarction without residual deficits; N17.9 Acute kidney failure, unspecified; Q61.2 Polycystic kidney, adult type; I12.9 Hypertensive chronic kidney disease with stage 1 through stage 4 chronic kidney disease, or unspecified chronic kidney disease; R51.9 Headache, unspecified; R42 Dizziness and giddiness; R00.1 Bradycardia, unspecified; I25.10 Atherosclerotic heart disease of native coronary artery without angina pectoris; I1A.0 Resistant hypertension; N18.9 Chronic kidney disease, unspecified; R23.2 Flushing; R11.0 Nausea; R61 Generalized hyperhidrosis; E21.1 Secondary hyperparathyroidism, not elsewhere classified; E55.9 Vitamin D deficiency, unspecified; K21.9 Gastro-esophageal reflux disease without esophagitis; E78.5 Hyperlipidemia, unspecified; D84.821 Immunodeficiency due to drugs; I95.9 Hypotension, unspecified; D64.9 Anemia, unspecified; R53.1 Weakness; D69.6 Thrombocytopenia, unspecified; Z95.1 Presence of aortocoronary bypass graft; Z79.82 Long term (current) use of aspirin; Z79.52 Long term (current) use of systemic steroids; Z79.02 Long term (current) use of antithrombotics/antiplatelets; Z79.624 Long term (current) use of inhibitors of nucleotide synthesis; Z95.5 Presence of coronary angioplasty implant and graft; Z82.71 Family history of polycystic kidney; Z87.891 Personal history of nicotine dependence; Z86.19 Personal history of other infectious and parasitic diseases
CPT/HCPCS: 70450; 80048; 80053; 83735; 84100; 85025; 85027; 93005; 97116; 97163; 97167; 97530; 97535; 99285; G0378

== ENCOUNTER 2023-07-02 06:17 | Outpatient (RCR) | payer MEDICARE, BC, SELFPAY | END 2023-07-02 23:59 | disposition home or self-care (01) | LOC: RPT 06:17 | PROVIDERS: ATTENDING PHYSICIAN Physical Medicine & Rehabilitation; FAMILY PHYSICIAN Family Medicine | DX: I69.354 Hemiplegia and hemiparesis following cerebral infarction affecting left non-dominant side (principal); I69.391 Dysphagia following cerebral infarction; I69.393 Ataxia following cerebral infarction; R13.10 Dysphagia, unspecified; Z74.09 Other reduced mobility; Z73.6 Limitation of activities due to disability | CPT/HCPCS: 97163; 97167; 97535 ==

== ENCOUNTER 2023-08-07 12:56 | Outpatient (RCR) | payer MEDICARE, BC, SELFPAY | END 2023-08-07 23:59 | disposition home or self-care (01) | LOC: RPT 12:56 | PROVIDERS: ATTENDING PHYSICIAN Physical Medicine & Rehabilitation; FAMILY PHYSICIAN Family Medicine | DX: I69.391 Dysphagia following cerebral infarction (principal); I69.354 Hemiplegia and hemiparesis following cerebral infarction affecting left non-dominant side; I69.312 Visuospatial deficit and spatial neglect following cerebral infarction; I69.393 Ataxia following cerebral infarction; R13.10 Dysphagia, unspecified; Z73.6 Limitation of activities due to disability; I10 Essential (primary) hypertension | CPT/HCPCS: 97110; 97112; 97116; 97140; 97530; 97535 ==

== ENCOUNTER 2023-09-08 09:29 | Outpatient (RCR) | payer MEDICARE, BC, SELFPAY | END 2023-09-08 23:59 | disposition home or self-care (01) | LOC: RPT 09:29 | PROVIDERS: ATTENDING PHYSICIAN Physical Medicine & Rehabilitation; FAMILY PHYSICIAN Family Medicine | DX: I63.9 Cerebral infarction, unspecified (principal); Z74.09 Other reduced mobility; Z73.6 Limitation of activities due to disability | CPT/HCPCS: 97110; 97112; 97535 ==

== ENCOUNTER 2023-09-10 15:26 | Outpatient (RCR) | payer MEDICARE, BC, SELFPAY | END 2023-09-22 14:37 | disposition home or self-care (01) | LOC: RPT 15:26 | PROVIDERS: ATTENDING PHYSICIAN Physical Medicine & Rehabilitation; FAMILY PHYSICIAN Family Medicine | DX: I63.9 Cerebral infarction, unspecified (principal); Z74.09 Other reduced mobility; Z73.6 Limitation of activities due to disability | CPT/HCPCS: 97110 ==

== ENCOUNTER → 2024-02-12 22:00 | Outpatient (REF) | payer MEDICARE, BC, SELFPAY | LOC: DHSLP 22:00 | PROVIDERS: ATTENDING PHYSICIAN Nurse Practitioner Adult Health; FAMILY PHYSICIAN Internal Medicine Cardiovascular Disease | DX: G47.33 Obstructive sleep apnea (adult) (pediatric) (principal) | CPT/HCPCS: 95800 ==

== ENCOUNTER → 2024-06-28 06:57 | Outpatient (REF) | payer MEDICARE, BC, SELFPAY | LOC: PAVMRI 06:57 | PROVIDERS: ATTENDING PHYSICIAN Nurse Practitioner Adult Health; FAMILY PHYSICIAN Family Medicine | DX: I63.9 Cerebral infarction, unspecified (principal); G46.3 Brain stem stroke syndrome; H53.9 Unspecified visual disturbance | CPT/HCPCS: 70551 ==

== ENCOUNTER → 2024-07-30 07:00 | Outpatient (REF) | payer MEDICARE, BC, SELFPAY | LOC: MRI 3T 07:00 | PROVIDERS: ATTENDING PHYSICIAN Psychiatry & Neurology Neurology; FAMILY PHYSICIAN Family Medicine | DX: I63.00 Cerebral infarction due to thrombosis of unspecified precerebral artery (principal) | CPT/HCPCS: 70544 ==

== ENCOUNTER → 2024-09-12 10:04 | Outpatient (REF) | payer MEDICARE, BC, SELFPAY ==
[2024-09-12 11:18] LABS: VerifyNow PRU 167 PRU (180-376)
[2024-09-12 11:29] LABS: VerifyNow Aspirin 541 ARU
== END ==
LOC: REG 10:04
PROVIDERS: ATTENDING PHYSICIAN Nurse Practitioner Adult Health
DX: I63.9 Cerebral infarction, unspecified (principal)
CPT/HCPCS: 36415; 85576

== ENCOUNTER 2025-03-14 01:17 | Inpatient (IN) | payer MEDICARE, BC, SELFPAY ==
[2025-03-13 21:05] VITALS: BP 220/122
[2025-03-13 21:30] VITALS: BMI 27.3
[2025-03-13 21:39] VITALS: BP 206/108
[2025-03-13 21:44] LABS: Hematocrit 40.3 % (39.0-52.0); Hemoglobin 14.3 g/dL (13.0-18.0); Mean Corp Hgb Conc. 35.5 g/dL (33.0-37.0); Mean Corpuscular Volume 87.2 fL (80.0-94.0); Nucleated Red Blood Cells % 0 % (-); Platelet Count 92 10^3/uL (130-400); Red Cell Dist. Width 12.7 % (11.5-14.5)
[2025-03-13 21:50] LABS: ALT (SGPT) 28 U/L (0-50); AST (SGOT) 20 U/L (17-59); Albumin 4.0 g/dl (3.5-5.0); Alkaline Phosphatase 114 U/L (38-126); Blood Urea Nitrogen 32 mg/dl (9-20); Calcium 11.1 mg/dl (8.4-10.2); Carbon Dioxide 29 mmol/L (22-30); Chloride 100 mmol/L (98-107); Estimated Creatinine Clearance 62 ml/min; Glucose 262 mg/dl (70-99); Lipase 227 U/L (23-300); Potassium 3.8 mmol/L (3.5-5.1); Sodium 136 mmol/L (135-145); Total Protein 6.6 g/dl (6.3-8.2); eGFR 58.62
[2025-03-13 22:00] VITALS: BP 193/110
[2025-03-13 22:01] LABS: Troponin I 0.018 ng/ml
[2025-03-13 22:49] VITALS: BP 193/105
[2025-03-13 23:00] VITALS: BP 191/100
[2025-03-13 23:30] VITALS: BP 183/103
[2025-03-13] MEDS: APRESOLINE 10 MG IV (23:41)
[2025-03-14] VITALS (8 sets, daily range): BP systolic 152–163; BP diastolic 74–98; BMI 28.1
--- NOTE | 2025-03-14 00:22 | ED.GENMED ---
History of Present Illness
General
Chief Complaint: Chest Pain
Source: patient
Time Seen by Provider: 03/13/25 21:36
History of Present Illness
History of Present Illness:
Note:
CHIEF COMPLAINT(S)
Chest pain and alteration in bowel movements.
HISTORY OF PRESENT ILLNESS
The patient is a 59-year-old male with a significant medical history, including hypertension, a coronary artery bypass graft in 2019, and a kidney transplant in 2020 due to polycystic kidney disease. In May 2023, the patient experienced a
Wallenberg syndrome (lateral medullary syndrome) stroke. He presents with concerns of chest pain and altered bowel movements over the past week.
The patient describes the chest pain as a non-acute, dull pain located around the heart, occasionally extending to the left side of the rib cage and back. The pain has been intermittent, increasing in frequency this evening, prompting the visit. He
reports an episode while resting at home and describes the pain as 'gicky,' not sharp or overtly severe, but concerning due to his history. The patient has noticed a pattern of diarrhea, including an acute episode that required him to urgently find
a restroom.
Additionally, the patient expresses uncertainty about whether symptoms originate from the chest or are related to the abdomen. There is a personal history of a similar sensation attributed to fluid overload during dialysis, which resulted in fluid
buildup around the heart, leading to a relief after dialysis.
The patient reported a minor episode of dyspnea and a sensation of fatigue, prompting the need for increased rest. No significant current left arm pain or tingling was disclosed. The patient has a recent history of running out of his prescribed
statin and had taken a diuretic (Furosemide, 20 mg as needed) the same evening for mild edema.
PAST MEDICAL AND SURGICAL HISTORY
Coronary artery bypass graft (2019).
Kidney transplant due to polycystic kidney disease (2020).
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
CHRONIC MEDICAL CONDITIONS SIGNIFICANTLY AFFECTING CARE
Hypertension.
Kidney transplant due to polycystic kidney disease.
SOCIAL DETERMINANTS AFFECTING HEALTH
The patient indicates previous difficulty in medical management due to side effects of medication adjustments for blood pressure control, causing dizziness due to low pressure.
MEDICATIONS
Furosemide 20 mg, taken as needed.
Losartan, usage schedule unspecified in discussion.
REVIEW OF SYSTEMS
- Cardiovascular: Intermittent chest pain around the heart, described as a dull aching sensation. No significant radiating left arm pain.
- Gastrointestinal: Abnormal bowel patterns with onset of diarrhea, infrequent bowel movements, deviation from normal routine.
- Neurological: Recent history of fatigue and dyspnea accompanied by exertion.
PHYSICAL EXAM
General: Alert, no acute distress.
Skin: Warm, dry.
Head: Normocephalic, atraumatic.
Neck: Supple, trachea midline.
Eyes, Ears, Nose, Mouth, and Throat: Oral mucosa moist.
Cardiovascular: Heart rate regular without murmur; blood pressure hypertensive at 193/110.
Respiratory: Lungs clear on auscultation.
Gastrointestinal: Abdomen non-distended, tender consistency not mentioned.
Back: Normal range of motion, normal alignment.
Musculoskeletal: Full range of motion, normal strength.
Neurological: Alert and oriented to person, place, time, and situation; No focal neurological deficits observed.
Psychiatric: Cooperative, appropriate mood and affect.
PROBLEM LIST
Acute Problems:
- Chest pain of uncertain etiology.
- Altered bowel movements with episodes of diarrhea.
- Hypertension.
Chronic Problems:
- Hypertension.
- Kidney transplant.
PLAN
- Conduct cardiac enzyme tests and check kidney function.
- Perform a chest X-ray to evaluate chest pain origin.
- Monitor blood pressure over the next 30 minutes and address if persistently elevated.
- Review patients medication list and adjust as necessary to avoid interference with kidney health.
DIFFERENTIAL DIAGNOSIS
The Differential Diagnosis includes, in no particular order and is not limited to:
- Acute coronary syndrome.
- Gastroesophageal reflux disease.
- Biliary colic.
- Myocardial ischemia.
- Costochondritis.
- Acute gastroenteritis.
- Medication side effects.
- Acute kidney rejection.
- Paraesophageal hernia.
- Diverticulitis.
EKG
My independent EKG interpretation is:
- Time of EKG: Not specified
- Rhythm: Normal sinus rhythm
- Heart rate: 86 beats per minute
- [place]: Normal axis
- Notable abnormalities: Inferolateral T wave inversions
- T wave observation: Conversion is slightly more prompt than prior
- Comparison to prior EKG (May 2023): Changes noted with more prompt T wave conversion
Disposition:
SUMMARY OF ENCOUNTER
The patient is a 59-year-old male with a significant medical history, including a stroke, coronary artery disease, hypertension, hyperlipidemia, coronary artery bypass graft, polycystic kidney disease, and kidney transplant in 2020. He presented
with left-sided abdominal and chest pain described as nonspecific. Upon evaluation, mild tenderness was noted on the left upper quadrant. A CT scan of the abdomen was performed, revealing mild hydronephrosis of his transplanted kidney due to 2 mm
ureterolithiasis. Lab results indicated slight hypercalcemia with calcium at 11.1 mg/dL and elevated blood glucose at 622 mg/dL. His creatinine was mildly elevated at 1.4 mg/dL, consistent with his baseline. CBC was normal. Blood pressure initially
measured at 220/122 mmHg, later reduced to 183/103 mmHg after administration of IV hydralazine.
DISPOSITION
Admit.
ASSESSMENT
The presentation is suggestive of possible complications from stones in the transplanted kidney, leading to hydronephrosis, accompanied by hypercalcemia which may be contributing to his pain and elevated glucose levels.
EMERGENCY TREATMENTS ADMINISTERED
The patient received IV hydralazine for hypertension and IV fluids addressing hyperglycemia and hypercalcemia.
MANAGEMENT OF THE PATIENTS CARE WAS DISCUSSED WITH
Case was discussed with Dr. Soto of Urology, who is aware of the situation.
PLAN
The patient is planned for admission with urology consultations planned for the morning. Monitoring and management of lab abnormalities including hypercalcemia and elevated glucose will continue, with pending component tests.
INDEPENDENT REVIEW OF LABS AND INTERPRETATION OF TESTS
- My independent review of calcium levels indicates slight hypercalcemia at 11.1 mg/dL.
- My independent review of blood glucose indicates an elevated level of 622 mg/dL.
- My independent review of creatinine indicates a baseline elevation at 1.4 mg/dL.
- My independent review of CBC shows normal results.
ADDITIONAL TESTING AND IMAGING CONSIDERED
Repeat cardiac enzyme tests were considered pending results.
CT interpretation: My independent interpretation of the abdominal CT scan shows no acute inflammatory process with noted mild hydronephrosis of the transplanted kidney due to 2 mm ureterolithiasis.
PATIENT EDUCATION AND COUNSELING
The patient was informed about the findings of the kidney stones and possible implications on the transplanted kidney. The importance of controlling blood glucose and hypertension was also emphasized.
MEDICATION RECONCILIATION
The patient was administered a dose of IV hydralazine for hypertension management.
MEDICAL DECISION MAKING
-Complexity of Data Reviewed: Chronic conditions affecting care include coronary artery disease, hypertension, kidney transplant due to polycystic kidney disease. Differential diagnosis includes acute coronary syndrome, gastroesophageal reflux
disease, biliary colic, myocardial ischemia, costochondritis, acute gastroenteritis, medication side effects, acute kidney rejection, paraesophageal hernia, and diverticulitis.
-Data:
Category 1
-My independent interpretation of the CT scan indicates mild hydronephrosis due to 2 mm ureterolithiasis in the transplanted kidney.
-My independent review of labs indicates slight hypercalcemia, elevated blood glucose, and consistent creatinine baseline.
Category 3
-Discussion of management with Dr. Soto in Urology for awareness and further management.
DIAGNOSIS
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
- ICD-10 E83.52: Hypercalcemia.
- ICD-10 E11.65: Type 2 Diabetes mellitus with hyperglycemia.
Past History
Past History
ED Past Medical History: CAD, HTN, Renal failure and Other (Hypertension, polycystic kidney disease, peritoneal dialysis)
ED Past Surgical History: Cardiac (CABG) and Other (manohar kidney removal w/ cadaver kidney transplant October in [facility], Peritoneal dialysis port)
Social History
Tobacco: Non-smoker
Alcohol: Occasional
Drug: Marijuana (Occasional)
Personal:
Living: with family
Employment: Employed
Family History
Family History: Other (His father had coronary disease in his 40s and polycystic kidneys)
Phy Exam
Physical Exam
Physical Exam:
.
Scores
Heart Score for Chest Pain Patients
STEMI patient?: No
History: Slightly or Non-Suspicious
ECG: Nonspecific Repolarization
Age: >45 - <65 years
Risk Factors: >/= 3 Risk Factors or History of CAD
Troponin: </= Normal Limit
Heart Score for Chest Pain Patients: 4
Heart Score Risk: 20.3% MACE over next 6 weeks
Course
Orders/Labs/Results
Orders:
Orders
03/13/25 21:05
Electrocardiogram (*1) Urgent
Reason for Study: Chest Pain
Cardiac Monitoring- Treatment ONCE
EKG- Treatment ONCE
IV Insert/Care/Rem.- Treatment PRN
O2 Therapy [RESP] Urgent
Titrate/Wean O2 to maintain O2 sat greater than (%): 90
Special Instructions: Maintain sats >/=90%
Pulse Ox/spot Check [RESP] Urgent
Quantity: 1
Special Instructions: ON ROOM AIR
03/13/25 21:19
Complete Blood Count/With Diff Urgent
Comprehensive Metabolic Panel Urgent
Lipase Urgent
Troponin I Urgent
03/13/25 22:06
CT Abd/pel Without Iv Or Oral Urgent
Comment:
Reason For Exam: L sided pain
CR Chest - 2 Views Urgent
Comment:
Reason For Exam: L CP
03/13/25 22:51
HydrALAZINE [Apresoline] 10 mg IV NOW STA
03/14/25 00:15
0.9% Sodium Chloride 1000 ml [Nss] 1,000 ml IV BOLUS
03/14/25 00:16
HydrALAZINE [Apresoline] 5 mg IV NOW STA
03/14/25 00:17
Electrocardiogram (*1) Urgent
Reason for Study: Chest Pain
EKG- Treatment ONCE
HydrALAZINE [Apresoline] 10 mg IV NOW STA
03/14/25 00:25
Urinalysis Reflex To Culture Urgent
03/14/25 00:49
Troponin I Urgent
03/14/25 01:11
Admit/Transfer Patient As Directed
Co-Sign Provider:
Level of Care: Inpatient admission
Assign to:: Telemetry
Physician / Group: Mu
Diagnosis: Abd Pain, R Ureteral Stone
Reason for Telemetry: Chest Pain syndromes
Date to Stop Telemetry: 03/16/25
Time to Stop Telemetry: 11:00
Reason for Hospitalization: Abd Pain, R Ureteral Stone
Expected length of stay greater than two midnights?: Yes
ELOS- Estimated Length of Stay in days: 2
I certify the patient meets the requirements for IP care: Yes
PRN Pain Medication Management As Directed
May give lesser potent ordered pain med per pt: Yes
preference::
Protocol:: Medication orders for pain may be administered in a
manner that supports deferring to patient preference
when the pt is:
- Requesting an ordered lesser potent pain medication.
Least to most potent pain medications are defined
as: acetaminophen < NSAID < tramadol < opioids
(morphine, oxycodone, hydromorphone).
- Requesting a lesser dose of the same medication IF
ORDERED.
- Requesting a less intrusive route of administration
if both routes are prescribed by the provider (PO <
IV).
03/14/25 01:14
Code Status As Directed
Resuscitation Status: Full Code
03/16/25 11:00
DC Protocol for Telemetry ONCE
Abnormal Lab Results
03/13/25
21:19
RBC 4.62 L 10^6/uL
(4.70-6.10)
Plt Count 92 L 10^3/uL
(130-400)
BUN 32 H mg/dl
(9-20)
Creatinine 1.4 H mg/dL
(0.7-1.3)
Glucose 262 H mg/dl
(70-99)
Calcium 11.1 H mg/dl
(8.4-10.2)
03/13/25 21:19
03/13/25 21:19
Vital Signs
Initial and Last Documented VS:
Initial Vital Signs
Temp Pulse Resp BP Pulse Ox
98.4 F 91 18 220/122 98
03/13/25 21:05 03/13/25 21:05 03/13/25 21:05 03/13/25 21:05 03/13/25 21:05
Last Documented Vital Signs
Temp Pulse Resp BP Pulse Ox
98.4 F 98 15 157/81 98
03/13/25 21:05 03/14/25 02:00 03/14/25 02:00 03/14/25 02:00 03/14/25 01:45
*Pulse Oximetry
SaO2: 97
Oxygen Mode of Delivery: Room air
Patient hypoxic: no
*Critical Care Note
Total Time (30-74mins, 75-104mins- exclusive of procedures): Not Applicable
ED Attending Note
-
Portions of this chart may have been created with voice recognition software.� Occasional wrong word or��sound alike� substitutions may have occurred due to the inherent limitations of voice recognition software.
Discharge Plan
Departure
Patient Disposition: Admit
Date of Disposition: 03/14/25
Time of Disposition: 00:24
Admit to: Telemetry
Presentation/result/management discussed w/ accepting MD/DO: Hospitalist
Discharge Problem:
Chest pain, Ureterolithiasis, Hypercalcemia, Chronic renal insufficiency, Acute hyperglycemia, Uncontrolled hypertension
Interventions
Interventions:
*Risk Screen - Suicide Last Done: 03/13/25 21:05
*General Assessment Last Done: 03/13/25 21:32
*Neglect/Abuse Screening Last Done: 03/13/25 21:05
*ED- Fall Risk Assessment Last Done: 03/13/25 21:32
*ED COVID-19 Vaccine History Last Done: 03/13/25 21:32
*ED Influenza Vaccine History Last Done: 03/13/25 21:32
ED- Cardiac Assessment Last Done: 03/13/25 21:40
[2025-03-14] MEDS: NSS 1000 IV (00:51)
[2025-03-14] MEDS: APRESOLINE 10 MG IV (00:54)
--- NOTE | 2025-03-14 01:17 | HPS.HSE ---
Family Physician
-
Family Physician: Skinny Moreau
Chief Complaint
-
Abd Pain / Chest pain
History of Present Illness
Patient is a 59y M with PMH significant for renal transplant, prior medullary CVA, ASCVD and hypertension who presents to ED complaining of abdominal discomfort and chest pain. Patient states that he developed left-sided abdominal discomfort
about 1-2 weeks ago. He states that his bowel habits have been affected with less frequent stools. He has had some decreased appetite and sense of early satiety. He took some stool softeners OTC and had some loose / soft stools; however, his
abdominal symptoms did not improve. He has some mild nausea without emesis.
For the past 2-3 days, he has also noted left-sided chest discomfort. He has no SOB or diaphoresis. No palpitations.
With persistent symptoms, patient presented to the ED for further evaluation.
He denies any right-sided abdominal pain. No hematuria, difficulty with urination, etc.
Medical History
Past Medical History
Past Medical History: Reports Other
Additional Past Medical History:
CKD (previously HD-dependent, now s/p transplant)
Polycystic Kidney Disease
ASCVD (CAD, CVA)
Deviated septum
Dyslipidemia
Multidrug Resistant Hypertension
Supine Hypertension
Hyperparathyroidism
Vitamin D deficiency
GERD
Erosive Gastropathy / GERD
Posttransplant CMV infection
Posttransplant BK viremia
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
Past Surgical History: Reports Other
Additional Past Surgical History:
CABG
PTCA with Stent
Septoplasty
Peritoneal dialysis catheter placement and removal
Left upper extremity AV fistula creation
Bilateral nephrectomy
Renal Transplant
Colonic polypectomy
Hernia repair
Social History
Tobacco: Non-smoker
Alcohol: None
Drug: None
Family History
Family History: Other (ADPKD)
Allergies / Home Medications
Allergies reflects when Allergies were last updated in [facility].
Home Medications with original date entered in [facility]
Allergy/Medication List:
Allergies
Allergy/AdvReac Type Severity Reaction Status Date / Time
No Known Allergies Allergy Verified 03/13/25 21:05
Home Medications
atorvastatin 40 mg tablet 40 mg PO QPM 30 days #30 tabs 06/25/23
baclofen 10 mg tablet 10 mg PO HS hiccups 30 days #30 tabs 06/25/23
cholecalciferol (vitamin D3) 25 mcg (1,000 unit) tablet 25 mcg PO DAILY Supplement 30 days #30 tabs 06/25/23
clopidogrel 75 mg tablet 75 mg PO DAILY 30 days #30 tabs 06/25/23
cyanocobalamin (vitamin B-12) 1,000 mcg tablet 1,000 mcg PO DAILY 30 days #30 tabs 06/25/23
folic acid 400 mcg tablet 0.4 mg PO DAILY 30 days #30 tabs 06/25/23
magnesium L-lactate 84 mg tablet,extended release 84 mg PO BID 30 days #60 tabs 06/25/23
metoprolol tartrate 50 mg tablet 50 mg PO HS 30 days #30 tabs 06/25/23
multivitamin with folic acid 400 mcg tablet (Tab-A-Viviana) 1 tab PO DAILY 30 days #30 tabs 06/25/23
mycophenolate sodium 180 mg tablet,delayed release 360 mg (2 x 180 mg) PO BID 30 days #120 tabs 06/25/23
potassium chloride 20 mEq tablet,extended release(part/cryst) 20 meq PO DAILY 30 days #30 tabs 06/25/23
potassium, sodium phosphates 280 mg-160 mg-250 mg oral powder packet (Phosphorous Supplement) 1 packet PO DAILY Supplement 30 days #30 ea 06/25/23
prednisone 5 mg tablet 5 mg PO Q48H 30 days #15 tabs 06/25/23
aspirin 81 mg chewable tablet 81 mg PO DAILY 03/14/25
cinacalcet 30 mg tablet 60 mg PO QPM 03/14/25
losartan 50 mg tablet 50 mg PO DAILY 03/14/25
metformin 500 mg tablet 500 mg PO DAILY 03/14/25
metoprolol tartrate 50 mg tablet 50 mg PO BID Blood pressure 03/14/25
tacrolimus 1 mg tablet,extended release 24 hr (Envarsus XR) 4 mg PO DAILY 03/14/25
terazosin 1 mg capsule 2 mg PO HS 03/14/25
Med list partially reconciled - patient not certain of all medications and has no current list with him.
Review of Systems
-
History Source: Patient
A 12 point ROS was completed and negative except as noted: Yes
Constitutional: Denies Fever or Chills
Respiratory: Denies Cough or Trouble Breathing
Cardiac: Reports Chest Pain; Denies Palpitations
Abdomen/GI: Reports Abdominal Pain, Nausea, Constipated and Anorexia; Denies Vomiting, Diarrhea, Bloody Stools or Black Stools
: Denies Dysuria, Frequency, Flank Pain, Difficulty Voiding or Bleeding
Musculoskeletal: Denies Joint Pain or Edema
Neurological: Denies Dizzy or Headache
Psych: Denies Depression or Anxiety
Physical Exam
Vital Signs
Vital Signs
Temp Pulse Resp BP Pulse Ox
98.4 F 105 17 160/93 97
03/13/25 21:05 03/14/25 00:54 03/13/25 23:15 03/14/25 00:54 03/14/25 00:25
Physical Exam
General: Other (59y M in no acute distress.)
HEENT: Moist mucous membranes and PERRLA
Respiratory: Clear; No Wheezes, Rales or Rhonchi
Cardiac: S1/S2, Regular Rhythm and Murmur (II/ MACIEJ)
GI: Soft, Non Distended, Normal Bowel Sounds and Other (Mild LLQ tenderness. No rebound / guarding. Pos BS.)
Musculoskeletal: No Clubbing, No Cyanosis and No Edema
Neuro: AO x 3
Laboratory Results
-
03/13/25 21:19
03/13/25 21:19
Laboratory Results
Total Bilirubin 0.5 mg/dl (0.2-1.3) 03/13/25 21:19
AST 20 U/L (17-59) 03/13/25 21:19
ALT 28 U/L (0-50) 03/13/25 21:19
Alkaline Phosphatase 114 U/L (38-126) 03/13/25 21:19
Troponin I 0.018 ng/ml 03/13/25 21:19
Lipase 227 U/L (23-300) 03/13/25 21:19
Impression/Plan
-
A/P: Patient is a 59y M with PMH significant for CKD s/p renal transplant, ASCVD / prior CVA and hypertension who presents to ED complaining of abdominal pain and chest pain.
Abdominal Pain / Chest Pain
- Observe overnight for further evaluation and treatment.
- EKG unremarkable. Troponin unremarkable (0.018) - follow to peak.
- Continue current CV med regimen including DAPT, etc.
- Follow for any new / worsening symptoms.
- Cardio eval if rising troponin, worsening chest pain, etc.
- No evidence of significant stool burden / constipation on CT scan.
- No other clear etiologies of discomfort noted thus far.
Right Ureteral Stone
Renal Transplant Status
CKD III
- Tiny ureteral stone (2mm) with mild associated hydro.
- SCr = 1.4. Patient reports baseline of 1.1 - 1.2, though most prior values here all in 1.4 range.
- Continue current antirejection med regimen without changes.
- IVF support. Continue terazosin. Strain urine.
- Urology evaluation for additional recommendations.
- Follow renal function for any changes.
- Transplanted kidney / ureter is on the R - not consistent with presenting complaint of L abdominal pain / chest pain.
ASCVD
Left Medullary CVA
- No new focal symptoms per patient.
- Continue current CV med regimen including DAPT, etc.
Multidrug Resistant Hypertension
Nocturnal / Supine Hypertension
- Difficult scenario with attempts at BP control while supine triggering orthostatic symptoms while upright.
- Continue current outpatient BP med regimen. Avoid 'over-pursuing' evening hypertension.
- Follow for BP control / lightheadedness / hypotension / etc.
- Adjust med regimen as needed.
Hyperparathyroidism
Hypercalcemia
- Calcium chronically elevated.
- Continue cinacalcet.
- IVFs as noted above.
- Follow for changes.
Chronic Thrombocytopenia
- No active evidence of bleeding.
- Other cell counts remain stable.
DVT Prophylaxis: SCDs
Code Status: Full
[2025-03-14 01:30] LABS: Troponin I 0.021 ng/ml
[2025-03-14] MEDS: TYLENOL 650 MG PO (01:36)
--- NOTE | 2025-03-14 02:50 | PTCARENOTE ---
Pt arrived from ED via stretcher, aaox3, cooperative. Pt ambulated to bed independently. Oriented to room. Call galvez within reach.
[2025-03-14] MEDS: LR 1000 IV (03:18)
[2025-03-14 03:20] LABS: Urine Character Clear (Clear)
[2025-03-14 04:06] LABS: Urine Red Blood Cell 0-2 /HPF (0-2); Urine White Cell 0-2 /HPF (0-5)
[2025-03-14 04:31] LABS: Blood Urea Nitrogen 25 mg/dl (9-20); Calcium 10.2 mg/dl (8.4-10.2); Carbon Dioxide 21 mmol/L (22-30); Chloride 107 mmol/L (98-107); Estimated Creatinine Clearance 79 ml/min; Glucose 211 mg/dl (70-99); HDL Cholesterol 29 mg/dl; Potassium 3.3 mmol/L (3.5-5.1); Sodium 136 mmol/L (135-145); eGFR > 60.00
[2025-03-14 04:33] LABS: Hematocrit 37.0 % (39.0-52.0); Hemoglobin 13.4 g/dL (13.0-18.0); Mean Corp Hgb Conc. 36.2 g/dL (33.0-37.0); Mean Corpuscular Volume 86.0 fL (80.0-94.0); Platelet Count 85 10^3/uL (130-400); Red Cell Dist. Width 12.7 % (11.5-14.5)
[2025-03-14 04:44] LABS: Troponin I 0.027 ng/ml
[2025-03-14 05:03] LABS: LDL Cholesterol, Direct 136 mg/dl
[2025-03-14 06:50] LABS: Glucose - Point of Care 218 mg/dl (70-99)
--- NOTE | 2025-03-14 08:33 | CONS.URO ---
Consultation
-
Date/Time Consultation Performed: 03/14/2025 0645
Requesting Provider: ED
Performing Provider: Charles
Reason for Consultation: ureteral stone
Medical History
History of Present Illness
ED note: 'Patient is a 59y M with PMH significant for renal transplant, prior medullary CVA, ASCVD and hypertension who presents to ED complaining of abdominal discomfort and chest pain. Patient states that he developed left-sided abdominal
discomfort about 1-2 weeks ago. He states that his bowel habits have been affected with less frequent stools. He has had some decreased appetite and sense of early satiety. He took some stool softeners OTC and had some loose / soft stools;
however, his abdominal symptoms did not improve. He has some mild nausea without emesis.
For the past 2-3 days, he has also noted left-sided chest discomfort. He has no SOB or diaphoresis. No palpitations.
With persistent symptoms, patient presented to the ED for further evaluation.
He denies any right-sided abdominal pain. No hematuria, difficulty with urination, etc.'
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
'I came in for the GI issues. My kidney isn't bothering me. I'll reach out to my transplant team at [place].'
Past Medical History
Past Medical History: Other (Polycystic Kidney Disease ASCVD (CAD, CVA) Deviated septum Dyslipidemia Multidrug Resistant Hypertension Supine Hypertension Hyperparathyroidism Vitamin D deficiency GERD Erosive Gastropathy / GERD Posttransplant CMV
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
Past Surgical History: Other (CABG PTCA with Stent Septoplasty Peritoneal dialysis catheter placement and removal Left upper extremity AV fistula creation Bilateral nephrectomy Renal Transplant Colonic polypectomy Hernia repair)
Allergies/Home Medications
Allergies
Allergy/AdvReac Type Severity Reaction Status Date / Time
No Known Allergies Allergy Verified 03/13/25 21:05
Home Medications
�Medication �Instructions �Recorded �Confirmed �Type
atorvastatin 40 mg tablet 40 mg PO QPM 30 days #30 tabs 06/25/23 Rx
baclofen 10 mg tablet 10 mg PO HS hiccups 30 days #30 06/25/23 Rx
tabs
cholecalciferol (vitamin D3) 25 25 mcg PO DAILY Supplement 30 days 06/25/23 Rx
mcg (1,000 unit) tablet #30 tabs
clopidogrel 75 mg tablet 75 mg PO DAILY 30 days #30 tabs 06/25/23 03/14/25 Rx
cyanocobalamin (vitamin B-12) 1,000 mcg PO DAILY 30 days #30 tabs 06/25/23 03/14/25 Rx
1,000 mcg tablet
folic acid 400 mcg tablet 0.4 mg PO DAILY 30 days #30 tabs 06/25/23 03/14/25 Rx
magnesium L-lactate 84 mg 84 mg PO BID 30 days #60 tabs 06/25/23 03/14/25 Rx
tablet,extended release
metoprolol tartrate 50 mg tablet 50 mg PO HS 30 days #30 tabs 06/25/23 Rx
multivitamin with folic acid 400 1 tab PO DAILY 30 days #30 tabs 06/25/23 Rx
mcg tablet (Tab-A-Viviana)
mycophenolate sodium 180 mg 360 mg (2 x 180 mg) PO BID 30 days 06/25/23 03/14/25 Rx
tablet,delayed release #120 tabs
potassium chloride 20 mEq 20 meq PO DAILY 30 days #30 tabs 06/25/23 Rx
tablet,extended release(part/cryst)
potassium, sodium phosphates 280 1 packet PO DAILY Supplement 30 06/25/23 Rx
mg-160 mg-250 mg oral powder days #30 ea
packet (Phosphorous Supplement)
prednisone 5 mg tablet 5 mg PO Q48H 30 days #15 tabs 06/25/23 Rx
aspirin 81 mg chewable tablet 81 mg PO DAILY 03/14/25 03/14/25 History
cinacalcet 30 mg tablet 60 mg PO QPM 03/14/25 03/14/25 History
losartan 50 mg tablet 50 mg PO DAILY 03/14/25 03/14/25 History
metformin 500 mg tablet 500 mg PO DAILY 03/14/25 03/14/25 History
metoprolol tartrate 50 mg tablet 50 mg PO BID Blood pressure 03/14/25 03/14/25 History
tacrolimus 1 mg tablet,extended 4 mg PO DAILY 03/14/25 03/14/25 History
release 24 hr (Envarsus XR)
terazosin 1 mg capsule 2 mg PO HS 03/14/25 03/14/25 History
Physical Exam
Vital Signs
Vital Signs
Temp Pulse Resp BP Pulse Ox
98.2 F 83 16 160/90 97
03/14/25 08:31 03/14/25 08:31 03/14/25 08:31 03/14/25 08:31 03/14/25 08:31
Lab / Testing Results
Laboratory Results
03/14/25 03:47
03/14/25 03:47
Physical Exam
adult male in bed
General: Well Nourished and No Apparent Distress
GI: Other (RLQ tranplant kidney is non-tender to palpation)
Assessment / Plan
-
2 mm stone in ureter of transplant kidney -- no referable pain; normal renal function
patient does NOT want any intervention for the ureteral stone -- 'I will reach out to my transplant team.'
will remain available
Data Reviewed
-
CT Scan: Image personally visualized and interpreted
Lab Data: Labs Reviewed
Old Records: Reviewed
[2025-03-14] MEDS: LOPRESSOR 50 MG PO (08:54)
[2025-03-14] MEDS: ENVARSUS XR 4 MG PO (08:54)
[2025-03-14] MEDS: LOW STRENGTH ASPIRIN 81 MG PO (08:54)
[2025-03-14] MEDS: PLAVIX 75 MG PO (08:54)
[2025-03-14] MEDS: MYFORTIC DELAYED REL. 360 MG PO (08:54)
[2025-03-14 09:28] LABS: Troponin I 0.026 ng/ml
[2025-03-14 09:39] LABS: Glycohemoglobin (HgbA1c) 7.7 % (4.0-5.9)
--- NOTE | 2025-03-14 10:02 | CM ---
CM reviewed chart and met with pt bedside on 1 Acute. Lives with his , 2 story home, no MARIANELA. has first floor half bath, full flight to second floor bedroom and full bath.
Independent in ADLs, personal care and ambulation at baseline. No assistive devices, no DME.
Confirms prescription coverage.
Hx VN and Rosne.
PCP: Skinny Moreau
Pharmacy: [address]
CM will continue to follow for all discharge planning needs.
--- NOTE | 2025-03-14 11:26 | W.PN.HOSP.TC ---
Today's Communication/Plan
-
DC today
GI outpatient follow up
Assessment / Plan
Assessment / Plan
ASSESSMENT:
A 59-year-old male with a past medical history of hypertension, CKD s/p renal transplant, erosive gastropathy and CVA presented to the ED with 2 weeks of left-sided abdominal pain, constipation, early satiety and decreased appetite. Despite
[id number] stool softeners, symptoms persisted. He also developed left-sided chest pain with nausea for 2 to 3 days prior to admission.
CT scan 03/13/25: mild acute hydronephrosis of right lower quadrant of renal transplant secondary to tiny 2 mm ureteral calculi. Mild to moderate enlargement of prostate gland, moderate diverticulosis in sigmoid colon, previous bilateral
nephrectomies, severe calcific atherosclerotic plaques in abdominal aorta, mild polycystic liver disease and hepatic cirrhosis, mild splenomegaly.�
CXR 03/13/25: Mild decreased bilateral lung nodules, previous CABG surgery, chronic healed left lateral rib fracture.
PLAN:
# Chest pain - resolved
# Abdominal pain - resolved
Atypical chest pain with associated nausea but no dyspnea or palpitations
EKG normal 03/13/2025
CXR with no acute findings
CT A/P showed mild hydronephrosis of transplanted kidney secondary to 2 mm ureteral calculi. Persistent left-sided pain and early satiety suggest possible overlapping GI etiology.
Patient states he would not like any intervention here at this time. He will follow-up with [facility] by himself.
Troponins were trended: 0.018, 0.021, 0.027, 0.026. No need for cardiology consult at this time.
Symptoms may be due to erosive gastropathy/esophagitis. Advised to use Pepto Bismol. Will give patient prescription for PPI, and advised outpatient gastroenterology follow-up to rule out esophagitis given history of CMV in the past.
Terazosin continued to tower helper ureteral stone passage
Patient given IV fluids for hydration
Pain control with Tylenol and Dilaudid as needed
Continue mycophenolate and tacrolimus per regimen bowel regimen. Patient to be discharged with MiraLAX and Senokot as needed.
# CKD III s/p renal transplant, right ureteral stone
Stable renal function at baseline
Mild hydronephrosis noted
S/p IV hydration
Patient will follow-up with [facility] team regarding the ureteral finding on CT. Denies any intervention here.
# Multidrug-resistant
# Noctural hypertension
Labile blood pressure with supine hypertension orthostatic symptoms
Mycophenolate and tacrolimus can cause hypertension
Continue current antihypertensive regimen
# Chronic hypercalcemia with hyperparathyroidism
Chronic, stable hypercalcemia.
Likely due to CKD (tertiary hyperparathyroidism)
# Chronic thrombocytopenia
Stable, no bleeding.
Anticipated Discharge: Today
Subjective/Interval History
-
Date of Service: March 14, 2025
A 59-year-old male with a past medical history of hypertension, CKD with renal transplant, erosive gastropathy and CVA who presented to the ED with chest pain and abdominal pain. He developed left-sided abdominal pain approximately 2 weeks ago with
associated constipation, early satiety and decreased appetite. He took an [id number] stool softener which led to loose stool but he still feels ' backed up.' Patient developed chest pain approximately 2 to 3 days prior to admission to the
hospital with associated nausea. He denies shortness of breath, palpitations or any urinary symptoms.
Upon evaluation today. Patient states that his pain is gone. He would like to go home.
Objective Data
-
Labs:
Laboratory Results
03/14/25
03:47
WBC 5.8
Hgb 13.4
Hct 37.0 L
Plt Count 85 L
Sodium 136
Potassium 3.3 L
Chloride 107
Carbon Dioxide 21 L
BUN 25 H
Creatinine 1.1
Glucose 211 H
Calcium 10.2
Vital Signs:
Vital Signs
Temp Pulse Resp BP Pulse Ox
98.2 F 83 16 160/90 97
03/14/25 08:31 03/14/25 08:54 03/14/25 08:31 03/14/25 08:54 03/14/25 08:31
I&O
03/13/25 03/14/25 03/15/25
06:59 06:59 06:59
Output Total 550 / 550 400 / 400
Balance -550 / -550 -400 / -400
Review of Systems
-
History Source: Patient
All other systems: Reviewed and negative
Constitutional: Reports No Symptoms
EENT: Reports No Symptoms Reported
Respiratory: Reports No Symptoms
Cardiac: Reports No Symptoms
Abdomen/GI: Reports No Symptoms
Breast: Reports No Symptoms
Genitourinary: Reports No Symptoms
Musculoskeletal: Reports No Symptoms
Skin: Reports No Symptoms
Neuro: Reports No Symptoms
Endocrine: Reports No Symptoms
Hematologic / Lymphatic: Reports No Symptoms
Allergy / Immunology: Reports No Symptoms
Physical Exam
-
General: Well Developed, Well Nourished, No Apparent Distress, Comfortable and Conversant
HEENT: Normocephalic, Atraumatic and Moist Mucous Membranes
Respiratory: Clear to Auscultation
Cardiac: Regular Rhythm and S1/S2
GI: Soft, Nontender and Nondistended
Musculoskeletal: No Clubbing, No Cyanosis and No Edema
Skin: Warm
Neuro: Awake and Oriented
Psych: Calm and Intact Judgement/Insight
Data Reviewed
-
CT Scan: Report Reviewed by me and Discussed with Physician
Labs: Labs Reviewed by me, Discussed with Physician and Discussed with Patient
Old Records: Reviewed
[2025-03-14] MEDS: LR IV (12:12)
[2025-03-14] MEDS: KCL 40 MEQ PO (12:43)
--- NOTE | 2025-03-14 13:38 | W.DCSUMMARY ---
Discharge Summary
Discharge Data
Date of Admission: 03/14/25
Date of Discharge: 03/14/25
-
Pending Results: No
Hospital Course
Discharging Physician : Dr. Harvey García and Dr. Aurelia Prater
Disposition : Home
Primary care physician : Dr. Skinny Moreau
Principal Discharge diagnosis : Chest pain, abdominal pain, right ureteral stone
Chronic Discharge diagnosis : CKD Stage III, s/p renal transplant, multidrug resistant hypertension, history of chronic hypercalcemia, history of chronic thromboctyopenia
Hospital Course : A 59 year old male with a history of HTN, CKD status post renal transplant, erosive gastropathy, and CVA presented with 2 weeks of left sided abdominal pain, constipation, early satiety, and decreased appetite. He also endorsed
left-sided chest pain and nausea for 2-3 days prior to admission. CT abdomen and pelvis on 03/13/25 revealed mild hydronephrosis of the transplanted kidney in the right lower quadrant secondary to a small 2 mm ureteral calculus. CXR showed no acute
findings. EKG was normal, and troponin levels were slightly elevated but with a flattening curve (0.018 --> 0.027 --> 0.026) not suggestive of ACS. His chest and abdominal pain resolved during hospitalization. Symptoms were suspected to be
multifactorial, possibly related to erosive gastropathy or esophagitis given his history of CMV. He was started on a PPI 40 mg once daily and advised to use Pepto Bismol as needed with outpatient GI follow up recommended. Terazosin was continued to
assist ureteral stone passage, and he received IV fluids for hydration. Renal function remained stable, and he declined any inpatient urologic intervention, preferring to follow up with his transplant team at the [facility].
His chronic issues, including CKD stage III, hypercalcemia, chronic thrombocytopenia, and labile blood pressure remained stable. He will continue his immunosuppressive regimen of mycophenolate and tacrolimus and was discharged home today in stable
condition with MiraLAX/Senokot as needed with recommendation of outpatient follow up with GI (as soon as possible) as well as PCP (within 1 week). Patient shows understanding of this plan, and is agreeable for the same.
Important imaging findings :
CT scan 03/13/25: mild acute hydronephrosis of right lower quadrant of renal transplant secondary to tiny 2 mm ureteral calculi. Mild to moderate enlargement of prostate gland, moderate diverticulosis in sigmoid colon, previous bilateral
nephrectomies, severe calcific atherosclerotic plaques in abdominal aorta, mild polycystic liver disease and hepatic cirrhosis, mild splenomegaly.
CXR 03/13/25: Mild decreased bilateral lung nodules, previous CABG surgery, chronic healed left lateral rib fracture.
Discharge Plan
-
Patient Disposition: Home (Routine Discharge)
Discharge Diagnosis/Procedures: Chest pain
Abdominal pain
S/p renal transplant with 2 mm ureteral calculi
Condition: Good
Diet: Low Sodium
Activity: As tolerated
Driving Restrictions: As prior to admission
Bathing Restrictions: None
Blood Work: CBC, CMP in 1 week (obtain prescription from PCP)
Referrals:
[facility] [Other] - in one to two weeks
Ting Szymanski MD [Active, Gastroenterology] - in two to three weeks
Skinny Moreau MD [Family Provider, Family Practice] - in less than 1 week
Additional Discharge Medication Instructions: Please take over the counter Pepto Bismol.
Prescriptions:
New
polyethylene glycol 3350 17 gram Powder In Packet
17 g PO DAILY PRN (Reason: Constipation) Qty: 14 0RF
sennosides [Sheila-maximo] 8.6 mg Tablet
17.2 mg PO HS Qty: 30 0RF
pantoprazole 40 mg tablet,delayed release (DR/EC)
40 mg PO DAILY Qty: 30 0RF
Continued
losartan 50 mg Tablet
50 mg PO DAILY
metformin 500 mg Tablet
500 mg PO DAILY
metoprolol tartrate 50 mg tablet
50 mg PO BID
cinacalcet 30 mg tablet
60 mg PO QPM
clopidogrel 75 mg Tablet
75 mg PO DAILY 30 Days Qty: 30 0RF
aspirin 81 mg Tablet,Chewable
81 mg PO DAILY Qty: 0 0RF
mycophenolate sodium 180 mg Tablet,Delayed Release (Dr/Ec)
360 mg PO BID 30 Days Qty: 120 0RF
prednisone 5 mg Tablet
5 mg PO Q48H 30 Days Qty: 15 0RF
atorvastatin 40 mg Tablet
40 mg PO QPM 30 Days Qty: 30 0RF
folic acid 400 mcg Tablet
0.4 mg PO DAILY 30 Days Qty: 30 0RF
potassium chloride 20 mEq Tablet,Er Particles/Crystals
20 meq PO DAILY 30 Days Qty: 30 0RF
baclofen 10 mg Tablet
10 mg PO HS 30 Days Qty: 30 0RF
magnesium L-lactate 84 mg Tablet Extended Release
84 mg PO BID 30 Days Qty: 60 0RF
potassium, sodium phosphates [Phosphorous Supplement] 280-160-250 mg Powder In Packet
1 packet PO DAILY 30 Days Qty: 30 0RF
cyanocobalamin (vitamin B-12) 1,000 mcg Tablet
1,000 mcg PO DAILY 30 Days Qty: 30 0RF
metoprolol tartrate 50 mg Tablet
50 mg PO HS 30 Days Qty: 30 0RF
cholecalciferol (vitamin D3) 25 mcg (1,000 unit) Tablet
25 mcg PO DAILY 30 Days Qty: 30 0RF
multivitamin with folic acid [Tab-A-Viviana] 400 mcg Tablet
1 tab PO DAILY 30 Days Qty: 30 0RF
Changed
terazosin 1 mg capsule
2 mg PO HS Qty: 0 0RF
Envarsus XR 1 mg tablet extended release 24 hr
4 mg PO DAILY Qty: 0 0RF
Discharge Orders:
Discharge Patient (As Directed); Ordered 03/14/25
Ordered By: Aurelia Prater
Discharge Date and Time
Discharge Date/Time: 03/14/25 13:35
Print Language: URUGUAYAN
== END 2025-03-14 13:35 | disposition home or self-care (01) | DRG 392 ==
LOC: 1 ACUTE 01:17
PROVIDERS: ADMITTING PHYSICIAN Hospitalist; ATTENDING PHYSICIAN Internal Medicine; CONSULT PHYSICIAN Specialist; EMERGENCY PHYSICIAN Emergency Medicine; FAMILY PHYSICIAN Family Medicine
DX: K31.89 Other diseases of stomach and duodenum (principal); Z94.0 Kidney transplant status; N13.2 Hydronephrosis with renal and ureteral calculous obstruction; K20.90 Esophagitis, unspecified without bleeding; I12.9 Hypertensive chronic kidney disease with stage 1 through stage 4 chronic kidney disease, or unspecified chronic kidney disease; N18.30 Chronic kidney disease, stage 3 unspecified; I1A.0 Resistant hypertension; E83.52 Hypercalcemia; R07.89 Other chest pain; Z86.73 Personal history of transient ischemic attack (TIA), and cerebral infarction without residual deficits; I25.10 Atherosclerotic heart disease of native coronary artery without angina pectoris; E78.5 Hyperlipidemia, unspecified; K21.9 Gastro-esophageal reflux disease without esophagitis; Z95.1 Presence of aortocoronary bypass graft; Z95.5 Presence of coronary angioplasty implant and graft; Z90.5 Acquired absence of kidney; Z79.84 Long term (current) use of oral hypoglycemic drugs; Z82.71 Family history of polycystic kidney; Z79.82 Long term (current) use of aspirin; D69.6 Thrombocytopenia, unspecified; K74.60 Unspecified cirrhosis of liver; Z79.899 Other long term (current) drug therapy
CPT/HCPCS: 71046; 74176; 80048; 80053; 80061; 81003; 81015; 82962; 83036; 83690; 83721; 84484; 85025; 85027; 93005; 96361; 96374; 99285